=== PATIENT | female | born 1985 | race Caucasian/White ===

== ENCOUNTER 2016-04-24 15:51 | Emergency (ER) | payer OTHER, SELFPAY ==
[2016-04-24] MEDS ORDERED: Sodium Chloride 0.9% 2.5 ML Syringe FLUSH PRN (15:59)
[2016-04-24] MEDS ORDERED: Sodium Chloride 0.9% 10 ML Syringe FLUSH PRN (15:59)
[2016-04-24 16:59] LABS: CHLORIDE,CL 113 mmol/L (98-110); SODIUM,NA 141 mmol/L (136-146)
[2016-04-24] MEDS ORDERED: Iopamidol 755 MG/ML 50 ML Bottle IV STA (17:56)
--- NOTE | 2016-04-24 18:02 | EDM.PDOC ---
ED HPI GI/ABDOMINAL - General Chief Complaint: Abdominal Pain Stated Complaint: POSSIBLE INFECTED GLADBLADDER Time Seen by Provider: 04/24/16 16:00 Source of Information: Reports: Patient, Old records History Limitations: Reports: No limitations - History of Present Illness INITIAL COMMENTS - FREE TEXT/NARRATIVE: HISTORY AND PHYSICAL: History of present illness: [Patient comes to the emergency room at the request of Carla Avalos NP at [facility] where patient presented with diffuse abdominal pain for the past couple of days. She had an ultrasound of her abdomen which showed gall bladder thickening and inflammation. Surgeon was contacted by the clinic who recommended patient followup in the ER for blood work and abdominal CT scan. Patient shows up approximately 4 hours after leaving the clinic for evaluation in the ER. She's had diffuse abdominal pain which is worse in the right upper quadrant. She 's been feeling ill on and off for the past several weeks but really worsened over the past couple of days. She's not had fever or chills. She was prescribed Zofran this morning which greatly improved her feelings of nausea. She has taken small sips of water since she's been home the clinic today but has had no food. One episode of diarrhea today. Denies burning with urination, urinary frequency and hematuria.] Review of systems: As per history of present illness and below otherwise all systems reviewed and negative. Past medical history: As per history of present illness and as reviewed below otherwise noncontributory. Surgical history: As per history of present illness and as reviewed below otherwise noncontributory. Social history: No reported history of drug or alcohol abuse. Family history: As per history of present illness and as reviewed below otherwise noncontributory. Physical exam: HEENT: Atraumatic, normocephalic. Oral mucous membranes are pink and moist. throat clear, neck supple, no lymphadenopathy. Lungs: Clear to auscultation, no wheezing, crackles or rales. breath sounds equal bilaterally. Heart: S1S2, regular rate and rhythm., negative for clicks, rubs, or JVD. Abdomen: Bowel sounds are normoactive throughout. Abdomen is soft and nondistended. Diffuse abdominal tenderness with palpation significantly worse to right upper quadrant. Positive Lui's sign. Negative for costovertebral tenderness. No guarding masses or rebound. Pelvis: Stable nontender. Genitourinary: Deferred. Rectal: Deferred. Extremities: Atraumatic, negative for cords or calf pain. Cyanosis or edema to feet or lower legs. Neurovascular unremarkable. Neuro: Awake, alert, oriented. Motor and sensory unremarkable throughout. Exam nonfocal. Diagnostics: [CBC, CMP, urinalysis, amylase, lipase, urine , CT abdomen and pelvis] Impression: [] Right upper Quadrant abdominal pain UTI] Plan: [Labs and CT report are reviewed with patient and Dr. Sophia Ferro. Abdominal CT shows a significantly distended gallbladder and a dilated cystic duct measuring up to 1.[address] Cat recommends HIDA scan as an outpatient tomorrow followup with her in clinic next week. Will start patient on Cipro 500 mg twice a day for the next 7 days for UTI. Patient is in agreement with today' s plan. All questions are answered and concerns are addressed.] Definitive disposition and diagnosis as appropriate pending reevaluation and review of above. - Related Data Allergies/ADRs: Allergies Allergy/AdvReac Type Severity Reaction Status Date / Time aspirin Allergy Muscle Verified 04/24/16 15:58 Weakness Home Meds: Home Meds . 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 Musculoskeletal History: Reports: None Neurological History: Reports: None Psychiatric History: Reports: None Endocrine/Metabolic History: Reports: None Hematologic History: Reports: None Immunologic History: Reports: None Oncologic (Cancer) History: Reports: None Dermatologic History: Reports: None - Infectious Disease History Infectious Disease History: Reports: Chicken pox, Hepatitis A - Past Surgical History Head Surgeries/Procedures: Reports: None Social & Family History - Family History Family Medical History: Noncontributory - Tobacco Use Smoking Status *Q: Current Some Day Smoker Years of Tobacco use: 8 Packs/Tins Daily: 0.2 Second Hand Smoke Exposure: Yes - Caffeine Use Caffeine Use: Reports: None - Alcohol Use Days Per Week of Alcohol Use: 2 Number of Drinks Per Day: 4 Total Drinks Per Week: 8 - Recreational Drug Use Recreational Drug Use: No ED ROS GENERAL - Review of Systems Review Of Systems: ROS reveals no pertinent complaints other than HPI. ED EXAM, GI/ABD - Physical Exam Exam: See Below Course - Vital Signs Last Recorded V/S: Last Vital Signs Temp 98.7 F 04/24/16 19:16 Pulse 73 04/24/16 19:16 Resp 16 04/24/16 19:16 BP 117/79 04/24/16 19:16 Pulse Ox 99 04/24/16 19:16 - Orders/Labs/Meds Orders: Active Orders 24 hr Category Date Time Status Abdomen Pelvis w Cont [CT] Stat Exams 04/24/16 16:00 Taken Saline Lock Insert [OM.PC] Stat Oth 04/24/16 15:59 Ordered Labs: Laboratory Tests 04/24/16 04/24/16 04/24/16 Range/Units 16:10 16:10 16:29 WBC 5.14 (4.0-11.0) K/uL RBC 4.61 (4.30-5.90) M/uL Hgb 13.1 (12.0-16.0) g/dL Hct 39.7 (36.0-46.0) % MCV 86.1 (80.0-98.0) fL MCH 28.4 (27.0-32.0) pg MCHC 33.0 (31.0-37.0) g/dL RDW Std Deviation 40.1 (28.0-62.0) fl RDW Coeff of Cecilia 13 (11.0-15.0) % Plt Count 167 (150-400) K/uL MPV 11.40 (7.40-12.00) fL Neut % (Auto) 63.3 (48.0-80.0) % Lymph % (Auto) 28.0 (16.0-40.0) % [place] % (Auto) 6.8 (0.0-15.0) % Eos % (Auto) 1.9 (0.0-7.0) % Baso % (Auto) 0.0 (0.0-1.5) % Neut # 3.3 (1.4-5.7) K/uL Lymph # 1.4 (0.6-2.4) K/uL Cascade # 0.4 (0.0-0.8) K/uL Eos # 0.1 (0.0-0.7) K/uL Baso # 0.0 (0.0-0.1) K/uL Nucleated RBC % 0.0 /100WBC Nucleated RBCs # 0 K/uL Sodium (136-146) mmol/L Potassium (3.5-5.1) mmol/L Chloride (98-110) mmol/L Carbon Dioxide (21-31) mmol/L BUN (6.0-23.0) mg/dL Creatinine (0.6-1.5) mg/dL Est Cr Clr Drug Dosing mL/min Estimated GFR (MDRD) ml/min Glucose (60-110) mg/dL Calcium (8.8-10.8) mg/dL Total Bilirubin (0.1-1.5) mg/dL AST (5-40) IU/L ALT (8-54) IU/L Alkaline Phosphatase (40-150) Total Protein (6.0-8.0) g/dL Albumin (3.5-5.0) g/dL Globulin (2.0-3.5) g/dL Albumin/Globulin Ratio (1.3-2.8) Amylase (10-90) U/L Lipase (7-80) U/L Urine Color YELLOW Urine Appearance CLEAR Urine pH 7.0 (5.0-8.0) Ur Specific [place] 1.020 (1.001-1.035) Urine Protein NEGATIVE (NEGATIVE) mg/dL Urine Glucose (UA) NEGATIVE (NEGATIVE) mg/dL Urine Ketones NEGATIVE (NEGATIVE) mg/dL Urine Occult Blood MODERATE (NEGATIVE) Urine Nitrite NEGATIVE (NEGATIVE) Urine Bilirubin NEGATIVE (NEGATIVE) Urine Urobilinogen 2.0 H (<2.0) EU/dL Ur Leukocyte Esterase NEGATIVE (NEGATIVE) Urine RBC 0-2 (0-2/HPF) Urine WBC 1-2 (0-5/HPF) Ur Epithelial Cells MODERATE (NONE-FEW) Urine Bacteria 2+ H (NEGATIVE) Urine HCG, Qual NEGATIVE (NEGATIVE) 04/24/16 Range/Units 16:29 WBC (4.0-11.0) K/uL RBC (4.30-5.90) M/uL Hgb (12.0-16.0) g/dL Hct (36.0-46.0) % MCV (80.0-98.0) fL MCH (27.0-32.0) pg MCHC (31.0-37.0) g/dL RDW Std Deviation (28.0-62.0) fl RDW Coeff of Cecilia (11.0-15.0) % Plt Count (150-400) K/uL MPV (7.40-12.00) fL Neut % (Auto) (48.0-80.0) % Lymph % (Auto) (16.0-40.0) % Cascade % (Auto) (0.0-15.0) % Eos % (Auto) (0.0-7.0) % Baso % (Auto) (0.0-1.5) % Neut # (1.4-5.7) K/uL Lymph # (0.6-2.4) K/uL Cascade # (0.0-0.8) K/uL Eos # (0.0-0.7) K/uL Baso # (0.0-0.1) K/uL Nucleated RBC % /100WBC Nucleated RBCs # K/uL Sodium 141 (136-146) mmol/L Potassium 3.8 (3.5-5.1) mmol/L Chloride 113 H (98-110) mmol/L Carbon Dioxide 20 L (21-31) mmol/L BUN 15 (6.0-23.0) mg/dL Creatinine 0.7 (0.6-1.5) mg/dL Est Cr Clr Drug Dosing 109.01 mL/min Estimated GFR (MDRD) > 60.0 ml/min Glucose 96 (60-110) mg/dL Calcium 8.8 (8.8-10.8) mg/dL Total Bilirubin 0.4 (0.1-1.5) mg/dL AST 13 (5-40) IU/L ALT 16 (8-54) IU/L Alkaline Phosphatase 79 (40-150) Total Protein 7.0 (6.0-8.0) g/dL Albumin 4.0 (3.5-5.0) g/dL Globulin 3.0 (2.0-3.5) g/dL Albumin/Globulin Ratio 1.3 (1.3-2.8) Amylase 38 (10-90) U/L Lipase 17 (7-80) U/L Urine Color Urine Appearance Urine pH (5.0-8.0) Ur Specific [place] (1.001-1.035) Urine Protein (NEGATIVE) mg/dL Urine Glucose (UA) (NEGATIVE) mg/dL Urine Ketones (NEGATIVE) mg/dL Urine Occult Blood (NEGATIVE) Urine Nitrite (NEGATIVE) Urine Bilirubin (NEGATIVE) Urine Urobilinogen (<2.0) EU/dL Ur Leukocyte Esterase (NEGATIVE) Urine RBC (0-2/HPF) Urine WBC (0-5/HPF) Ur Epithelial Cells (NONE-FEW) Urine Bacteria (NEGATIVE) Urine HCG, Qual (NEGATIVE) Meds: Medications Discontinued Medications Generic Name Dose Route Start Last Admin Trade Name Freq PRN Reason Stop Dose Admin Iopamidol 100 ml 04/24/16 17:56 04/24/16 17:57 Isovue-370 (76%) IV 04/24/16 17:57 100 ml ONETIME STA Administration Sodium Chloride 10 ml 04/24/16 15:59 Saline Flush FLUSH ASDIRECTED PRN Keep Vein Open Sodium Chloride 2.5 ml 04/24/16 15:59 Saline Flush FLUSH ASDIRECTED PRN Keep Vein Open Departure - Departure Time of Disposition: 19:00 Disposition: Home, Self-Care 01 Condition: good Clinical Impression: Abdominal pain Qualifiers: Abdominal location: right upper quadrant Qualified Code(s): R10.11 - Right upper quadrant pain UTI (urinary tract infection) Qualifiers: Urinary tract infection type: site unspecified Hematuria presence: without hematuria Qualified Code(s): N39.0 - Urinary tract infection, site not specified Instructions: Urinary Tract Infection, Adult, [id number], Abdominal Pain, Adult, [id number] Referrals: PCP,None [Primary Care Provider] - Forms: ED Department Discharge Additional Instructions: The following information is given to patients seen in the emergency department who are being discharged to home. This information is to outline your options for follow-up care. We provide all patients seen in our emergency department with a follow-up referral. The need for follow-up, as well as the timing and circumstances, are variable depending upon the specifics of your emergency department visit. If you don't have a primary care physician on staff, we will provide you with a referral. We always advise you to contact your personal physician following an emergency department visit to inform them of the circumstance of the visit and for follow-up with them and/or the need for any referrals to a consulting specialist. The emergency department will also refer you to a specialist when appropriate. This referral assures that you have the opportunity for follow-up care with a specialist. All of these measure are taken in an effort to provide you with optimal care, which includes your follow-up. Under all circumstances we always encourage you to contact your private physician who remains a resource for coordinating your care. When calling for follow-up care, please make the office aware that this follow-up is from your recent emergency room visit. If for any reason you are refused follow-up, please contact the [facility] emergency department at and asked to speak to the emergency department charge nurse. [facility] Specialty Care- General Surgery Professional Building [address] [place] [address], [address] [place] [address] Call the above listed phone number tomorrow to schedule an appointment to followup with Dr. Sophia Ferro about your gallbladder next week. You have been given an outpatient prescription for a HIDA scan. Take this to radiology registration desk tomorrow. Take Cipro twice daily as prescribed. Return to ER as needed and as discussed. - My Orders Last 24 Hours: My Active Orders 04/24/16 15:59 Saline Lock Insert [OM.PC] Stat 04/24/16 16:00 Abdomen Pelvis w Cont [CT] Stat - Assessment/Plan Last 24 Hours: My Active Orders 04/24/16 15:59 Saline Lock Insert [OM.PC] Stat 04/24/16 16:00 Abdomen Pelvis w Cont [CT] Stat
[2016-04-24 19:19] VITALS: BP 117/79
--- NOTE | 2016-04-25 14:02 | CT ---
EXAM DATE: 04/24/16 PATIENT'S AGE: 30 Patient: JONN GODDARD Facility: [place], [place] Site . Site : 1985 Study: CT Abdomen/Pelvis [id number]/2/2017 6:00:02 PM Ordering Physician: Doctor Resendiz Final Report: INDICATION: Upper abdominal pain. Right flank pain TECHNIQUE: CT abdomen and pelvis acquired with IV contrast. COMPARISON: None available FINDINGS: Lower chest: Unremarkable. Liver: An irregular low-attenuation area in the anterior segment of the right hepatic lobe, with very subtle slightly increased adjacent density, measuring up to 4.8 x 3.5 centimeters on the coronal reformats, not well evaluated. Spleen: Unremarkable. Pancreas: Unremarkable. Gallbladder and bile ducts: A significantly distended gallbladder. Dilated cystic duct measuring up to 1.5 centimeters proximally. Adrenal glands: Unremarkable. Kidneys: Unremarkable. GI tract: No high-grade mechanical bowel obstruction. Fluid-filled small bowel segments are nonspecific. No evidence of appendicitis. No significant pericolonic changes. Vascular structures: Unremarkable. Lymph nodes: Unremarkable. Miscellaneous: Unremarkable. No free air or significant free fluid. Pelvic Organs: Unremarkable. Bones: Unremarkable for age. IMPRESSION: No evidence of appendicitis, diverticulitis or high-grade mechanical bowel obstruction. Fluid-filled small bowel segments are nonspecific. Correlate for mild enteritis. Significantly distended gallbladder and dilated cystic duct. Recommend further sonographic evaluation. An ill-defined irregular hepatic lesion, not well evaluated. This could represent an FNH, although other etiologies are not excluded. Recommend followup evaluation with contrast MRI. Dictated by Talib Cox MD @ 04/24/2016 6:23:07 PM Dictated by: Talib Cox MD @ 04/24/2016 18:23:19 (Electronic Signature) Report Signed by Proxy and Original Signed Document filed in the Medical Record. [facility] HOSPITALRenetta
== END 2016-04-24 19:16 | disposition home or self-care (01) ==
LOC: MW.ED 15:51
DX: N39.0 Urinary tract infection, site not specified (principal); F17.210 Nicotine dependence, cigarettes, uncomplicated; Z88.6 Allergy status to analgesic agent
CPT/HCPCS: 36415; 74177; 80053; 81001; 81025; 82150; 83690; 85025; 99284; Q9967; 99283

== ENCOUNTER → 2016-04-29 | Outpatient (CLI) | payer OTHER, SELFPAY ==
--- NOTE | 2016-04-29 10:51 | NM ---
EXAMINATION: Nuclear medicine hepatobiliary study (HIDA) HISTORY: Right upper quadrant pain. PROCEDURE: Following intravenous administration of 3.9 mCi of technetium 99m Choletec, dynamic images were ob tained up to one-hour post injection. FINDINGS: The initial dynamic images demonstrates clearance of the tracer from the blood pool with the prompt tracer uptake by the liver. By 60 minutes no activity is noted within the gallbladder. There is acti vity noted within the small bowel by 15 minutes. IMPRESSION: 1. No scintigraphic evidence of a patent cystic duct. Correlate clinically for acute cholecystitis.
== END ==
LOC: MW.NM 07:51
PROVIDERS: ATTEND Surgery
DX: R10.11 Right upper quadrant pain (principal)
CPT/HCPCS: 78226; A9537

== ENCOUNTER 2016-05-05 06:30 | Day surgery (SDC) | payer OTHER, SELFPAY ==
--- NOTE | 2016-05-02 10:56 | PCM.PREANE ---
Preanesthetic Assessment - ANESTHESIA/TRANSFUSION/FAMILY HX Anesthesia/Transfusion History: No Prior Anesthesia Family History of Anesthesia Reaction: No - PHYSICAL ASSESSMENT Height: 1.68 m Weight: 85.729 kg ASA Class: 1 - ALLERGIES Allergies/Adverse Reactions: Allergies Allergy/AdvReac Type Severity Reaction Status Date / Time aspirin Allergy Tachycardia Verified 05/01/16 08:07 - BLOOD Blood Available: No - ANESTHESIA PLAN Preop Beta Samir: No Anesthesia Type Planned: general anesthesia PreAnesthesia Questionnaire - Past Health History Medical/Surgical History: Denies Medical/Surgical History HEENT History: Reports: None Cardiovascular History: Reports: None Respiratory History: Reports: None Gastrointestinal History: Reports: Chronic diarrhea, GERD Genitourinary History: Reports: None 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 Musculoskeletal History: Reports: None Neurological History: Reports: None Psychiatric History: Reports: None Endocrine/Metabolic History: Reports: None Hematologic History: Reports: None Immunologic History: Reports: None Oncologic (Cancer) History: Reports: None Dermatologic History: Reports: None - Infectious Disease History Infectious Disease History: Reports: Chicken pox, Hepatitis A - Past Surgical History Head Surgeries/Procedures: Reports: None - SUBSTANCE USE Smoking Status *Q: Current Every Day Smoker Tobacco Use Within Last Twelve Months: Cigarettes Second Hand Smoke Exposure: Yes Days Per Week of Alcohol Use: 2 Number of Drinks Per Day: 4 Total Drinks Per Week: 8 Recreational Drug Use History: No - HOME MEDS Home Medications: Home Meds Ondansetron [Zofran ODT] 4 mg SL ASDIRECTED PRN 05/01/16 [History]
[~2016-05-05 06:30] MED LIST: Lactated Ringers 1,000 ML IV SCH
[2016-05-05] MEDS ORDERED: Scopolamine 1.5 MG Transdermal Patch TRDERM PRN (06:54)
--- NOTE | 2016-05-05 06:56 | PCM.PREANE ---
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 Respiratory: Reports: no symptoms Cardiovascular: Reports: no symptoms Other: Reports: none - PHYSICAL ASSESSMENT O2 Sat by Pulse Oximetry: 99 RR: 16 Vital Signs: Last Vital Signs Temp 37.1 C 05/05/16 06:49 Pulse 74 05/05/16 06:49 Resp 16 05/05/16 06:49 BP 120/58 L 05/05/16 06:49 Pulse Ox 99 05/05/16 06:49 Height: 1.68 m Weight: 85.729 kg ASA Class: 2 Mental Status: alert & oriented x3 Airway Class: Mallampati = 2 Dentition: Reports: normal dentition Thyro-Mental Finger Breadths: 3 Mouth Opening Finger Breadths: 3 ROM/Head Extension: full Respiratory Status: lungs clear to auscultation bilaterally Cardiovascular Status: regular rate & rhythm, normal S1, S2, no murmur, blood pressure WNL - ALLERGIES Allergies/Adverse Reactions: Allergies Allergy/AdvReac Type Severity Reaction Status Date / Time aspirin Allergy Tachycardia Verified 05/01/16 08:07 - BLOOD Blood Available: No - ANESTHESIA PLAN Preop Beta Samir: No Anesthesia Type Planned: general anesthesia - ACKNOWLEDGEMENTS Pt an appropriate candidate for the planned anesthesia: Yes Alternatives and risks of anesthesia discussed w pt/guardian: Yes Pt/Guardian understands and agree with anesthesia plan: Yes PreAnesthesia Questionnaire - Past Health History Medical/Surgical History: Denies Medical/Surgical History HEENT History: Reports: None Cardiovascular History: Reports: None Respiratory History: Reports: None Gastrointestinal History: Reports: Chronic diarrhea, GERD Genitourinary History: Reports: None 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 Musculoskeletal History: Reports: None Neurological History: Reports: None Psychiatric History: Reports: None Endocrine/Metabolic History: Reports: Obesity/BMI 30+ Hematologic History: Reports: None Immunologic History: Reports: None Oncologic (Cancer) History: Reports: None Dermatologic History: Reports: None - Infectious Disease History Infectious Disease History: Reports: Chicken pox, Hepatitis A - Past Surgical History Head Surgeries/Procedures: Reports: None - SUBSTANCE USE Smoking Status *Q: Light Tobacco Smoker Tobacco Use Within Last Twelve Months: Cigarettes Second Hand Smoke Exposure: Yes Days Per Week of Alcohol Use: 2 Number of Drinks Per Day: 4 Total Drinks Per Week: 8 Recreational Drug Use History: No - HOME MEDS Home Medications: Home Meds Ondansetron [Zofran ODT] 4 mg SL ASDIRECTED PRN 05/01/16 [History] - CURRENT (IN HOUSE) MEDS Current Meds: Current Medications Lactated Ringer's (Ringers, Lactated) 1,000 mls @ 125 mls/hr IV ASDIRECTED ON LICENSE OF [facility] Last Admin: 05/05/16 06:52 Dose: 125 mls/hr
[2016-05-05] MEDS ORDERED: Rocuronium 10 MG/ML 10 ML Syringe ONE (07:15)
[2016-05-05] MEDS ORDERED: Ondansetron 4 MG/2 ML SDV ONE (07:15)
[2016-05-05] MEDS ORDERED: Lidocaine 2% 5 ML SDV ONE (07:15)
[2016-05-05] MEDS ORDERED: Propofol 200 MG/20 ML SDV ONE (07:16)
[2016-05-05] MEDS ORDERED: Midazolam 1 MG/ML 2 ML SDV ONE (07:16)
[2016-05-05] MEDS ORDERED: fentaNYL 250 MCG/5 ML SDV ONE (07:16)
[2016-05-05] MEDS ORDERED: Bupivacaine 0.5% 30 ML SDV ONE (07:18)
[2016-05-05] MEDS ORDERED: ceFAZolin 2 GM in Premix Bag 1 BAG IV ONE (07:34)
[2016-05-05] MEDS ORDERED: Sodium Chloride 0.9% 2.5 ML Syringe FLUSH PRN (07:34)
[2016-05-05] MEDS ORDERED: Sodium Chloride 0.9% 10 ML Syringe FLUSH PRN (07:34)
[2016-05-05] MEDS ORDERED: Lactated Ringers 1,000 ML IV SCH (07:45)
[2016-05-05 07:53] LABS: CHLORIDE,CL 109 mmol/L (98-110); SODIUM,NA 142 mmol/L (136-146)
[2016-05-05] MEDS ORDERED: Dexamethasone 4 MG/ML 5 ML MDV ONE (08:07)
[2016-05-05] MEDS ORDERED: HYDROmorphone 2 MG/ML Syringe ONE (08:18)
[2016-05-05] MEDS ORDERED: Neostigmine Methylsulfate 1 MG/ML 5 ML Syringe ONE (08:58)
[2016-05-05] MEDS ORDERED: fentaNYL 100 MCG/2 ML SDV IVPUSH PRN (09:00)
[2016-05-05] MEDS ORDERED: Promethazine 12.5 MG Supp RECTAL PRN (09:00)
[2016-05-05] MEDS ORDERED: fentaNYL 100 MCG/2 ML SDV ONE (09:29)
[2016-05-05] MEDS ORDERED: Acetaminophen/oxyCODONE 325-5 MG Tab PO PRN (10:23)
--- NOTE | 2016-05-05 10:27 | PCM.OPNOTE ---
- General Post-Op/Procedure Note Date of Surgery/Procedure: 05/05/16 Operative Procedure(s): Laparoscopic cholecystectomy Findings: Enlarged gallbladder with large obstructing stone in the infundibulum and well as hydrops Pre Op Diagnosis: Cholelithiasis Post-Op Diagnosis: same Anesthesia Technique: General ET tube Primary Surgeon: Sophia Ferro Pathology: gallbladder EBL in mLs: 5 Condition: Good
--- NOTE | 2016-05-05 11:05 | PCM.POSTAN ---
POST ANESTHESIA ASSESSMENT - MENTAL STATUS Mental Status: alert, oriented - RESPIRATORY Respiratory Status: respiratory rate WNL, airway patent, O2 saturation stable - CARDIOVASCULAR CV Status: pulse rate WNL, blood pressure stable - GASTROINTESTINAL GI Status: no symptoms - POST OP HYDRATION Hydration Status: adequate & stable
--- NOTE | 2016-05-05 12:02 | PCM48HPAN ---
Post Anesthesia Note - EVALUATION WITHIN 48HRS OF ANESTHETIC Vital Signs in Normal Range: Yes Patient Participated in Evaluation: Yes Respiratory Function Stable: Yes Airway Patent: Yes Cardiovascular Function Stable: Yes Hydration Status Stable: Yes Pain Control Satisfactory: Yes Nausea and Vomiting Control Satisfactory: Yes Mental Status Recovered: Yes
--- NOTE | 2016-05-05 15:21 | OR ---
SURGEON: CHANDANA RAMIREZ MD DATE OF PROCEDURE: 05/05/2016 PREOPERATIVE DIAGNOSIS: Symptomatic cholelithiasis. POSTOPERATIVE DIAGNOSES: Chronic cholecystitis, cholelithiasis, hydrops of the gallbladder. OPERATION PERFORMED: Laparoscopic cholecystectomy. SEDATION: General. FINDINGS: Enlarged gallbladder with large stone in the infundibulum as well as hydrops. COMPLICATIONS: None. ESTIMATED BLOOD LOSS: 5 mL. INDICATIONS: The patient is a 30-year-old female with a 1-month history of right upper quadrant pain as well as postprandial nausea and diarrhea. A full workup was completed that revealed a large stone impacted within the cystic duct. Given this finding, it was pertinent that we remove the gallbladder before the patient developed complications including acute infection, gangrene, or necrosis. The patient and I discussed the procedure in the office. I explained both the laparoscopic and open approaches to removing the gallbladder. I explained that should I be unable to perform the procedure laparoscopically, I would be converting to open. I explained to her that given the location of the stone that she had a higher chance of converting to open. We discussed the other risks including bleeding, infection, or damage to surrounding structures. The patient verbalized understanding and wished to proceed. DESCRIPTION OF PROCEDURE: The patient was brought to the operating room and placed on the operating room table in supine position. A time-out was completed verifying the patient's name, age, date of , allergies, and procedure to be performed. General endotracheal anesthesia was induced. The patient's left arm was tucked at her side and the abdomen was prepped and draped in usual standard fashion. 0.5% lidocaine was used to anesthetize the infraumbilical fold. I then took an 11 blade and made an incision along the infraumbilical fold. Cautery was used to dissect down to the subcutaneous fat and S retractors were used for further dissection down to the level of the fascia. The fascia was elevated with 2 Nancy's and incised. The peritoneum was then elevated in a similar fashion using hemostats and incised. A large amount of fat was encountered upon entering the abdomen. Using my finger, I explored the area and encountered bowel. Because of this, I was confident that I had entered the abdomen and placed my 12 mm blunt-tipped trocar through the incision. The abdomen was then insufflated to a pressure of 12-15 mmHg. A 5 mm 30-degree scope was inserted in the abdomen and used to inspect the area underneath my incision. The bowel and fat below the incision all appeared intact with no evidence of damage. I then placed 3 more ports within the abdomen. The first 5 mm port was in the epigastric area. The next two 5 mm ports were then placed along the right subcostal margin approximately 2 fingerbreadths down. One was in the midclavicular line, the other was along the lateral edge. Next, the gallbladder was retracted cephalad to allow visualization of the gallbladder itself. I followed the gallbladder body down to the infundibulum. A very large round stone was noted to be in the infundibulum at the area consistent with the cystic duct. I further inspected the area and noted the common bile duct medial to the area I was going to work. The peritoneum was gently dissected free from the infundibulum of the gallbladder using hook cautery and gentle blunt dissection. This allowed me to better visualize the anatomy of the proximal gallbladder. Once I had dissected the base of the gallbladder free from the liver bed, I was then able to adequately identify the cystic duct and cystic artery. Once I had achieved a critical view, the cystic artery and cystic ducts were doubly clipped proximally and singly clipped distally and then transected. Next, the gallbladder was removed from the liver bed using electrocautery. This was extremely difficult given how enlarged the gallbladder was. At the beginning of the case, I had previously aspirated the gallbladder contents and obtained a large amount of clear white bile. This allowed me to grasp the gallbladder and retract it cephalad. Because of this maneuver, I was able to manipulate the gallbladder to dissect it off the gallbladder fossa. Once the gallbladder was removed from the liver bed, it was placed into an EndoCatch bag and removed through the infraumbilical port. The gallbladder was then inspected on the back table and appeared to be intact with one small hole at the dome of the gallbladder. After the gallbladder was successfully removed, an 11 mm trocar was placed into the abdomen. The liver edge was visualized. There was no evidence of acute bleeding and the area appeared hemostatic. The abdomen was irrigated with 2 L of normal saline until it ran clear. Next, the ports were removed under direct visualization and no bleeding was noted. The 11 mm port was removed from the infraumbilical incision. The fascia was then closed with [id number] interrupted 0 Vicryl sutures. The subcutaneous layer was closed with interrupted 3-0 Vicryl. The skin of the infraumbilical incision was closed with a running 4-0 Monocryl suture. The remainder of the port sites were then closed with interrupted 4-0 Monocryl sutures. The wounds were dressed with Steri-Strips and sterile dressings. The patient tolerated the procedure well. Sponge and instrument counts were correct at the end of the case. The patient was extubated in the operating room without event and transferred to recovery room in stable condition. BRANDYN HERNANDEZ /[id number] CHAYA
[2016-05-05 15:40] VITALS: BP 130/72
== END 2016-05-05 15:40 | disposition home or self-care (01) ==
LOC: MW.SDS 06:30
PROVIDERS: ATTEND Surgery
PROC: 0FT44ZZ Resection of Gallbladder, Percutaneous Endoscopic Approach (ICD-10-PCS; principal; 2016-05-05)
DX: K80.10 Calculus of gallbladder with chronic cholecystitis without obstruction (principal); F17.210 Nicotine dependence, cigarettes, uncomplicated; E66.9 Obesity, unspecified; Z88.8 Allergy status to other drugs, medicaments and biological substances; Z68.30 Body mass index [BMI] 30.0-30.9, adult
CPT/HCPCS: 36415; 47562; 80053; 81025; 88304; A9270; J0690; J1100; J1170; J2250; J2405; J2710; J3010; J7120; 00790; J2704

== ENCOUNTER 2017-01-24 11:36 | Emergency (ER) | payer SELFPAY ==
--- NOTE | 2017-01-24 11:58 | EDM.PDOC ---
ED HPI GENERAL MEDICAL PROBLEM - General Chief Complaint: Lower Extremity Injury/Pain Stated Complaint: LEFT KNEE PAIN Time Seen by Provider: 01/24/17 11:47 Source of Information: Reports: Patient History Limitations: Reports: No Limitations - History of Present Illness INITIAL COMMENTS - FREE TEXT/NARRATIVE: History of present illness: []Patient slipped yesterday at 6 PM with her right knee going underneath her. She has pain all over her knee but it feels unstable when she walks. She denies any other injuries. She tried to go to the orthopedic clinic but was told she has to be seen to the ER first. Review of systems: As per history of present illness and below otherwise all systems reviewed and negative. Past medical history: As per history of present illness and as reviewed below otherwise noncontributory. Surgical history: As per history of present illness and as reviewed below otherwise noncontributory. Social history: No reported history of drug or alcohol abuse. Family history: As per history of present illness and as reviewed below otherwise noncontributory. Physical exam: General: Well developed, well nourished in NAD HEENT: Atraumatic, normocephalic, pupils reactive, negative for conjunctival pallor or scleral icterus, mucous membranes moist, throat clear, neck supple, nontender, trachea midline. Lungs: Clear to auscultation, breath sounds equal bilaterally, chest nontender. Heart: S1S2, regular, negative for clicks, rubs, or JVD. Abdomen: Soft, nondistended, nontender. Negative for masses or hepatosplenomegaly. Negative for costovertebral tenderness. Pelvis: Stable nontender. Genitourinary: Deferred. Rectal: Deferred. Extremities: Atraumatic, right knee tender to palpation no effusion stable on exam negative for cords or calf pain. Neurovascular unremarkable. Neuro: Awake, alert, oriented. Cranial nerves II through XII unremarkable. Cerebellum unremarkable. Motor and sensory unremarkable throughout. Exam nonfocal. Diagnostics: []X-ray negative for fracture Therapeutics: [] Impression: []Right knee sprain Plan: []Knee immobilizer for stability follow-up with orthopedics Motrin for pain continue to ice knee. Definitive disposition and diagnosis as appropriate pending reevaluation and review of above. Right Knee Pain Score (Numeric/FACES): 4 - Related Data Allergies Allergy/AdvReac Type Severity Reaction Status Date / Time aspirin Allergy Tachycardia Verified 01/24/17 11:51 Home Meds: Home Meds . 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 Musculoskeletal History: Reports: None Neurological History: Reports: None Psychiatric History: Reports: None Endocrine/Metabolic History: Reports: Obesity/BMI 30+ Hematologic History: Reports: None Immunologic History: Reports: None Oncologic (Cancer) History: Reports: None Dermatologic History: Reports: None - Infectious Disease History Infectious Disease History: Reports: Chicken Pox, Hepatitis C, Measles - Past Surgical History Head Surgeries/Procedures: Reports: None GI Surgical History: Reports: Cholecystectomy Social & Family History - Family History Family Medical History: Noncontributory - Tobacco Use Smoking Status *Q: Former Smoker Years of Tobacco use: 10 Packs/Tins Daily: 0.2 Used Tobacco, but Quit: Yes Month Tobacco Last Used: October Second Hand Smoke Exposure: Yes - Caffeine Use Caffeine Use: Reports: None - Alcohol Use Days Per Week of Alcohol Use: 2 Number of Drinks Per Day: 4 Total Drinks Per Week: 8 - Recreational Drug Use Recreational Drug Use: No Drug Use in Last 12 Months: No Review of Systems - Review of Systems Review Of Systems: See Below (See history of present illness) ED EXAM, GENERAL - Physical Exam Exam: See Below (See history of present illness) Course - Vital Signs Last Recorded V/S: Last Vital Signs Temp 97.5 F 01/24/17 11:48 Pulse 76 01/24/17 11:48 Resp 18 01/24/17 11:48 BP 138/63 01/24/17 11:48 Pulse Ox 97 01/24/17 11:48 - Orders/Labs/Meds Orders: Active Orders 24 hr Category Date Time Status Knee 3V Rt [CR] Stat Exams 01/24/17 12:00 Taken Departure - Departure Time of Disposition: 12:52 Disposition: Home, Self-Care 01 Condition: Good Clinical Impression: Right knee sprain Qualifiers: Encounter type: initial encounter Involved ligament of knee: unspecified ligament Qualified Code(s): S83.91XA - Sprain of unspecified site of right knee , initial encounter - Discharge Information Referrals: PCP,None [Primary Care Provider] - Forms: ED Department Discharge Additional Instructions: The following information is given to patients seen in the emergency department who are being discharged to home. This information is to outline your options for follow-up care. We provide all patients seen in our emergency department with a follow-up referral. The need for follow-up, as well as the timing and circumstances, are variable depending upon the specifics of your emergency department visit. If you don't have a primary care physician on staff, we will provide you with a referral. We always advise you to contact your personal physician following an emergency department visit to inform them of the circumstance of the visit and for follow-up with them and/or the need for any referrals to a consulting specialist. The emergency department will also refer you to a specialist when appropriate. This referral assures that you have the opportunity for follow-up care with a specialist. All of these measure are taken in an effort to provide you with optimal care, which includes your follow-up. Under all circumstances we always encourage you to contact your private physician who remains a resource for coordinating your care. When calling for follow-up care, please make the office aware that this follow-up is from your recent emergency room visit. If for any reason you are refused follow-up, please contact the [facility] Emergency Department at and asked to speak to the emergency department charge nurse. Motrin for pain immobilizer as needed when walking follow-up with orthopedics [facility] [address] [place] [id number] - My Orders Last 24 Hours: My Active Orders 01/24/17 12:00 Knee 3V Rt [CR] Stat - Assessment/Plan Last 24 Hours: My Active Orders 01/24/17 12:00 Knee 3V Rt [CR] Stat
[2017-01-24 14:38] VITALS: BP 134/74
--- NOTE | 2017-01-26 13:53 | CR ---
EXAM DATE: 01/24/17 PATIENT'S AGE: 31 Patient: JONN TANG Facility: [place], [place] Site . Site : [id number] Study: XRay Knee [id number]/2/2017 12:21:11 PM Ordering Physician: Giovanni Forde Final Report: INDICATION: fall TECHNIQUE: Three views of the right knee are submitted. COMPARISON: None. FINDINGS: Joint spaces of the right knee are preserved. No evidence for fracture, dislocation or knee effusion. IMPRESSION: Negative right knee. Dictated by Farhad Le MD @ 01/24/2017 12:54:16 PM Dictated by: Farhad Le MD @ 01/24/2017 12:54:22 (Electronic Signature) Report Signed by Proxy. [facility]ITAL[facility]
== END 2017-01-24 13:03 | disposition home or self-care (01) ==
LOC: MW.ED 11:36
DX: S83.91XA Sprain of unspecified site of right knee, initial encounter (principal); Z88.6 Allergy status to analgesic agent; Z87.891 Personal history of nicotine dependence; W01.0XXA Fall on same level from slipping, tripping and stumbling without subsequent striking against object, initial encounter
CPT/HCPCS: 73562-26-RT; 73562-RT; 99282; 99283

== ENCOUNTER 2019-05-30 12:29 | Observation (INO) | payer OTHER ==
[2019-05-30] MEDS ORDERED: Nalbuphine 10 MG/1 ML Vial IVPUSH ONE (13:43)
[2019-05-30] MEDS ORDERED: Lactated Ringers 1,000 ML IV SCH (13:45)
[2019-05-30] MEDS ORDERED: Sodium Chloride 0.9% 10 ML Syringe FLUSH PRN (13:45)
[2019-05-30] MEDS ORDERED: Sodium Chloride 0.9% 10 ML SDV IV PRN (13:45)
[2019-05-30] MEDS ORDERED: Sodium Chloride 0.9% 2.5 ML Syringe FLUSH PRN (13:45)
--- NOTE | 2019-05-30 15:01 | US ---
Renal ultrasound: Multiple real-time images of the kidneys were obtained. Maternal kidneys show no hydronephrosis or mass. Right kidney measures 13.1 cm and left kidney measures 13.6 cm. Bilateral ureteral jets are seen within the bladder. Impression: 1. No abnormality is seen on renal ultrasound study. Diagnostic code #1 This report was dictated in MDT
[2019-05-30] MEDS ORDERED: Terbutaline 1 MG/ML SDV SUBCUT ONE ×2 (15:16→22:54)
[2019-05-30] MEDS ORDERED: Terbutaline 1 MG/ML SDV ONE (15:19)
[2019-05-30] MEDS ORDERED: Calcium Gluconate 10% 1 GM/10 ML SDV IVPUSH PRN (16:57)
[2019-05-30] MEDS ORDERED: Magnesium Sulfate/Water 2 GM in Premix Bag 1 BAG IV ONE (17:01)
[2019-05-30] MEDS: Betamethasone Acetate/Betamethasone Sod Phosphate 30 MG/5 ML MDV IM SCH (17:36)
[2019-05-30] MEDS: Magnesium Sulfate/Water 20 GM/500 ML BAG IV SCH (17:56)
--- NOTE | 2019-05-30 18:48 | PCM.LDHP ---
L&D History of Present Illness - General Date of Service: 05/30/19 Admit Problem/Dx: Patient Status Order with Admit Dx/Problem 05/30/19 12:51 Patient Status [ADT] Routine Admission Diagnosis/Problem Admission Diagnosis/Problem - planned 05/30/19 18:43 33yo EDC 07/19/2019 32 6/7wks, come today due to abd pain and cramping. O+, RI, GBS unkwn. Source of Information: Patient History Limitations: Reports: No Limitations - History of Present Illness Timing/Duration: Reports: minutes: Location, : Reports: Abdomen Quality: Reports: Ache, Burning, Throbbing Severity: Moderate Pain Score: 8 Improves with: Reports: None Worsens with: Reports: None Associated Symptoms: Denies: vaginal bleeding, vaginal clots, vaginal tissue, vaginal discharge, vaginal fluid - Related Data Allergies/Adverse Reactions: Allergies Allergy/AdvReac Type Severity Reaction Status Date / Time aspirin Allergy Tachycardia Verified 05/30/19 12:49 Home Medications: Home Meds . 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 Musculoskeletal History: Reports: None Neurological History: Reports: None Psychiatric History: Reports: None Endocrine/Metabolic History: Reports: Obesity/BMI 30+ Hematologic History: Reports: None Immunologic History: Reports: None Oncologic (Cancer) History: Reports: None Dermatologic History: Reports: None - Infectious Disease History Infectious Disease History: Reports: Chicken Pox, Hepatitis C, Measles - Past Surgical History Head Surgeries/Procedures: Reports: None GI Surgical History: Reports: Cholecystectomy Social & Family History - Family History Family Medical History: Noncontributory - Caffeine Use Caffeine Use: Reports: None H&P Review of Systems - Review of Systems: Review Of Systems: See Below General: Reports: No Symptoms HEENT: Reports: No Symptoms Pulmonary: Reports: No Symptoms Cardiovascular: Reports: No Symptoms Gastrointestinal: Reports: No Symptoms Genitourinary: Reports: No Symptoms Musculoskeletal: Reports: No Symptoms Skin: Reports: No Symptoms Psychiatric: Reports: No Symptoms Neurological: Reports: No Symptoms Hematologic/Lymphatic: Reports: No Symptoms Immunologic: Reports: No Symptoms L&D Exam - Exam Exam: See Below - Vital Signs Weight: 207 kg - OB Specific Contraction Intensity: Moderate Movement: Active Heart Tones: Present Heart Tones per Min: 140 Heart Rate (FHR) Variability: Moderate (6-25 bmp) Presentation: Vertex - Jacobo Score Jacobo Score Cervix Position: Midposition Jacobo Score Consistency: Soft Jacobo Score Effacement: 51-70% Jacobo Score Dilation: 1-2 cm Jacobo Score 's Station: -2 Jacobo Score Total: 7 - Exam General: Alert, Oriented, Cooperative, Mild Distress HEENT: Hearing Intact Lungs: Clear to Auscultation, Normal Respiratory Effort. No: Decreased Breath Sounds Cardiovascular: Regular Rate, Regular Rhythm, Normal S1, Normal S2 GI/Abdominal Exam: Soft, Non-Tender, Pelvis Stable Rectal Exam: Deferred Genitourinary: Normal external exam, Normal bimanual exam, Cervical dilitation. No: Cervical fluid, Vaginal bleeding Back Exam: Normal Inspection, Full Range of Motion Extremities: Normal Inspection, Normal Range of Motion, Non-Tender, No Pedal Edema Skin: Warm, Dry, Intact Neurological: Cranial Nerves Intact, Strength Equal Bilateral, Normal Gait, Normal Speech, Normal Tone, Sensation Intact Psychiatric: Alert, Normal Affect, Normal Mood - Patient Data Lab Results Last 24 hrs: Laboratory Results - last 24 hr 05/30/19 05/30/19 Range/Units 12:40 17:29 WBC 10.71 (4.0-11.0) K/uL RBC 4.30 (4.30-5.90) M/uL Hgb 12.1 (12.0-16.0) g/dL Hct 37.4 (36.0-46.0) % MCV 87.0 (80.0-98.0) fL MCH 28.1 (27.0-32.0) pg MCHC 32.4 (31.0-37.0) g/dL RDW Std Deviation 43.0 (28.0-62.0) fl RDW Coeff of Cecilia 14 (11.0-15.0) % Plt Count 152 (150-400) K/uL MPV 12.10 H (7.40-12.00) fL Nucleated RBC % 0.0 /100WBC Nucleated RBCs # 0 K/uL Urine Color YELLOW Urine Appearance HAZY Urine pH 6.5 (5.0-8.0) Ur Specific [place] 1.010 (1.001-1.035) Urine Protein NEGATIVE (NEGATIVE) mg/dL Urine Glucose (UA) NEGATIVE (NEGATIVE) mg/dL Urine Ketones 40 H (NEGATIVE) mg/dL Urine Occult Blood TRACE-INTACT H (NEGATIVE) Urine Nitrite NEGATIVE (NEGATIVE) Urine Bilirubin NEGATIVE (NEGATIVE) Urine Urobilinogen 0.2 (<2.0) EU/dL Ur Leukocyte Esterase NEGATIVE (NEGATIVE) Result Diagrams: 05/30/19 17:29 - Problem List (1) Supervision of normal IUP (intrauterine ) in primigravida SNOMED Code(s): 94136937, 313157117, 094658123, 543556676 ICD Code: Z34.00 - ENCNTR FOR SUPRVSN OF NORMAL FIRST , UNSP TRIMESTER Status: Acute Priority: High Current Visit: Yes Qualifiers: Trimester: third trimester Qualified Code(s): Z34.03 - Encounter for supervision of normal first , third trimester (2) contractions SNOMED Code(s): 612147626 ICD Code: O47.9 - FALSE LABOR, UNSPECIFIED Status: Acute Priority: High Current Visit: Yes Problem List Initiated/Reviewed/Updated: Yes Orders Last 24hrs: Active Orders 24 hr Category Date Time Status Patient Status [ADT] Routine ADT 05/30/19 12:51 Active Communication Order [RC] Per Unit Routine Care 05/30/19 16:57 Active Communication Order [RC] Per Unit Routine Care 05/30/19 16:57 Active Heart Tones [RC] ASDIRECTED Care 05/30/19 16:57 Active Non Stress Test [RC] PER UNIT ROUTINE Care 05/30/19 12:51 Active Height and Weight [RC] DAILY Care 05/30/19 16:57 Active Intake and Output [RC] QSHIFT Care 05/30/19 16:57 Active Notify Provider [RC] PRN Care 05/30/19 16:57 Active Notify Provider [RC] PRN Care 05/30/19 16:57 Active Up ad Mayela [RC] ASDIRECTED Care 05/30/19 12:51 Active Vaginal Exam [RC] Click to Edit Care 05/30/19 12:51 Active Vital Signs [RC] PER UNIT ROUTINE Care 05/30/19 12:51 Active Vital Signs [RC] PER UNIT ROUTINE Care 05/30/19 16:57 Active Betamet Acet/Betamet Na Phos [Celestone Soluspan 6 MG/ Med 05/30/19 17:00 Active ML] 12 mg IM Q24H Calcium Gluconate Med 05/30/19 16:57 Active 1 gm IVPUSH ASDIRECTED PRN Lactated Ringers [Ringers, Lactated] 1,000 ml Med 05/30/19 13:45 Active IV ASDIRECTED Magnesium Sulfate/Water [Magnesium Sulfate in Water Med 05/30/19 17:00 Active Premix] 20 gm in 500 ml IV ASDIRECTED Sodium Chloride 0.9% [Normal Saline] Med 05/30/19 13:45 Active 10 ml IV ASDIRECTED PRN Sodium Chloride 0.9% [Saline Flush] Med 05/30/19 13:45 Active 10 ml FLUSH ASDIRECTED PRN Sodium Chloride 0.9% [Saline Flush] Med 05/30/19 13:45 Active 2.5 ml FLUSH ASDIRECTED PRN Auscultate Breath Sounds [OM.PC] Per Unit Routine Oth 05/30/19 16:57 Ordered Deep Tendon Reflexes [WOMSER] [address] 05/30/19 17:00 Ordered Deep Tendon Reflexes [WOMSER] [address] 05/30/19 18:00 Ordered Deep Tendon Reflexes [WOMSER] [address] 05/30/19 19:00 Ordered Deep Tendon Reflexes [WOMSER] [address] 05/30/19 20:00 Ordered Deep Tendon Reflexes [WOMSER] [address] 05/30/19 21:00 Ordered Deep Tendon Reflexes [WOMSER] [address] 05/30/19 22:00 Ordered Deep Tendon Reflexes [WOMSER] [address] 05/30/19 23:00 Ordered Deep Tendon Reflexes [WOMSER] [address] 05/31/19 00:00 Ordered Deep Tendon Reflexes [WOMSER] [address] 05/31/19 01:00 Ordered Deep Tendon Reflexes [WOMSER] [address] 05/31/19 02:00 Ordered Deep Tendon Reflexes [WOMSER] [address] 05/31/19 03:00 Ordered Deep Tendon Reflexes [WOMSER] Q1H Oth 05/31/19 04:00 Ordered Deep Tendon Reflexes [WOMSER] Q1H Ot 05/31/19 05:00 Ordered Deep Tendon Reflexes [WOMSER] Q1 Ot 05/31/19 06:00 Ordered Deep Tendon Reflexes [WOMSER] Q1 Ot 05/31/19 07:00 Ordered Deep Tendon Reflexes [WOMSER] Q1 Ot 05/31/19 08:00 Ordered Deep Tendon Reflexes [WOMSER] Q1 Ot 05/31/19 09:00 Ordered Deep Tendon Reflexes [WOMSER] Q1 Ot 05/31/19 10:00 Ordered Deep Tendon Reflexes [WOMSER] Q1 Ot 05/31/19 11:00 Ordered Deep Tendon Reflexes [WOMSER] Q1 Ot 05/31/19 12:00 Ordered Deep Tendon Reflexes [WOMSER] Q1 Ot 05/31/19 13:00 Ordered Deep Tendon Reflexes [facility] 05/31/19 14:00 Ordered Deep Tendon Reflexes [[facility]SER] [facility] 05/31/19 15:00 Ordered Deep Tendon Reflexes [WOMSER] Q1 Ot 05/31/19 16:00 Ordered Deep Tendon Reflexes [WOMSER] Q1 Ot 05/31/19 17:00 Ordered Electronic Heart Tones Ext w TOCO [WOMSER] Per Oth 05/30/19 16:57 Ordered Unit Routine Peripheral IV Insertion Adult [OM.PC] Routine Oth 05/30/19 13:45 Ordered Resuscitation Status Routine Resus Stat 05/30/19 12:51 Ordered Medication Orders Betamethasone Acet/Betameth SodPhos (Celestone Soluspan 6 Mg/Ml) 12 mg IM Q24H BRADLY Stop: 05/31/19 17:01 Last Admin: 05/30/19 17:36 Dose: 12 mg Calcium Gluconate (Calcium Gluconate) 1 gm IVPUSH ASDIRECTED PRN PRN Reason: respiratory distress Lactated Ringer's (Ringers, Lactated) 1,000 mls @ 999 mls/hr IV ASDIRECTED BRADLY Last Admin: 05/30/19 14:10 Dose: 999 mls/hr Magnesium Sulfate (Magnesium Sulfate In Water Premix) 20 gm in 500 mls @ 50 mls /hr IV ASDIRECTED BRADLY Last Admin: 05/30/19 17:56 Dose: 2 gm/hr, 50 mls/hr Sodium Chloride (Saline Flush) 10 ml FLUSH ASDIRECTED PRN PRN Reason: Keep Vein Open Sodium Chloride (Saline Flush) 2.5 ml FLUSH ASDIRECTED PRN PRN Reason: Keep Vein Open Sodium Chloride (Normal Saline) 10 ml IV ASDIRECTED PRN PRN Reason: IV Use Assessment/Plan Comment:: Labor A: 33yo EDC 07/19/2019 32 6/7wks, come today due to abd pain and cramping. O +, RI, GBS unkwn. SVE 2/70/-2 soft mid (jacobo 7). States pain up to 8 until medication then down to 4. P: Admit for ops 24h. Gave IV fluid bolus, Terb 0.25sq, and IV Nubain for pain. This helped the pain and slowed the contractions some. SVE noted cervical change. Disc POC with Dr Simpson and started MgSo4 at 1756, betamethasone 12mg given at 1736. Will continue to monitor. If needed will transfer to [place].
[2019-05-30] MEDS ORDERED: Butorphanol 1 MG/ML SDV IVPUSH ONE (23:00)
[2019-05-31] MEDS: Magnesium Sulfate/Water 20 GM/500 ML BAG IV SCH (03:29)
--- NOTE | 2019-05-31 07:54 | PCM.PN ---
- General Info Date of Service: 05/31/19 Admission Dx/Problem (Free Text): Patient Status Order with Admit Dx/Problem 05/30/19 12:51 Patient Status [ADT] Routine Admission Diagnosis/Problem Admission Diagnosis/Problem - planned 05/30/19 18:43 33yo EDC 07/19/2019 32 6/7wks, come today due to abd pain and cramping. O+, RI, GBS unkwn. Functional Status: Reports: Pain Controlled - Review of Systems General: Reports: No Symptoms HEENT: Reports: No Symptoms Pulmonary: Reports: No Symptoms Cardiovascular: Reports: No Symptoms Gastrointestinal: Reports: No Symptoms Genitourinary: Reports: No Symptoms Musculoskeletal: Reports: No Symptoms Skin: Reports: No Symptoms Neurological: Reports: No Symptoms Psychiatric: Reports: No Symptoms - Patient Data Weight - Most Recent: 93.894 kg Lab Results Last 24 Hours: Laboratory Results - last 24 hr 05/30/19 05/30/19 05/30/19 Range/Units 12:40 17:29 22:19 WBC 10.71 (4.0-11.0) K/uL RBC 4.30 (4.30-5.90) M/uL Hgb 12.1 (12.0-16.0) g/dL Hct 37.4 (36.0-46.0) % MCV 87.0 (80.0-98.0) fL MCH 28.1 (27.0-32.0) pg MCHC 32.4 (31.0-37.0) g/dL RDW Std Deviation 43.0 (28.0-62.0) fl RDW Coeff of Cecilia 14 (11.0-15.0) % Plt Count 152 (150-400) K/uL MPV 12.10 H (7.40-12.00) fL Nucleated RBC % 0.0 /100WBC Nucleated RBCs # 0 K/uL Magnesium 5.0 H (1.8-2.4) mg/dL Urine Color YELLOW Urine Appearance HAZY Urine pH 6.5 (5.0-8.0) Ur Specific [place] 1.010 (1.001-1.035) Urine Protein NEGATIVE (NEGATIVE) mg/dL Urine Glucose (UA) NEGATIVE (NEGATIVE) mg/dL Urine Ketones 40 H (NEGATIVE) mg/dL Urine Occult Blood TRACE-INTACT H (NEGATIVE) Urine Nitrite NEGATIVE (NEGATIVE) Urine Bilirubin NEGATIVE (NEGATIVE) Urine Urobilinogen 0.2 (<2.0) EU/dL Ur Leukocyte Esterase NEGATIVE (NEGATIVE) 05/31/19 Range/Units 03:40 WBC (4.0-11.0) K/uL RBC (4.30-5.90) M/uL Hgb (12.0-16.0) g/dL Hct (36.0-46.0) % MCV (80.0-98.0) fL MCH (27.0-32.0) pg MCHC (31.0-37.0) g/dL RDW Std Deviation (28.0-62.0) fl RDW Coeff of Cecilia (11.0-15.0) % Plt Count (150-400) K/uL MPV (7.40-12.00) fL Nucleated RBC % /100WBC Nucleated RBCs # K/uL Magnesium 5.8 H (1.8-2.4) mg/dL Urine Color Urine Appearance Urine pH (5.0-8.0) Ur Specific [place] (1.001-1.035) Urine Protein (NEGATIVE) mg/dL Urine Glucose (UA) (NEGATIVE) mg/dL Urine Ketones (NEGATIVE) mg/dL Urine Occult Blood (NEGATIVE) Urine Nitrite (NEGATIVE) Urine Bilirubin (NEGATIVE) Urine Urobilinogen (<2.0) EU/dL Ur Leukocyte Esterase (NEGATIVE) Med Orders - Current: Current Medications Betamethasone Acet/Betameth SodPhos (Celestone Soluspan 6 Mg/Ml) 12 mg IM Q24H [facility] Stop: 05/31/19 17:01 Last Admin: 05/30/19 17:36 Dose: 12 mg Calcium Gluconate (Calcium Gluconate) 1 gm IVPUSH ASDIRECTED PRN PRN Reason: respiratory distress Lactated Ringer's (Ringers, Lactated) 1,000 mls @ 999 mls/hr IV ASDIRECTED BRADLY Last Admin: 05/30/19 14:10 Dose: 999 mls/hr Magnesium Sulfate (Magnesium Sulfate In Water Premix) 20 gm in 500 mls @ 50 mls /hr IV ASDIRECTED BRADLY Last Admin: 05/31/19 03:29 Dose: 2 gm/hr, 50 mls/hr Sodium Chloride (Saline Flush) 10 ml FLUSH ASDIRECTED PRN PRN Reason: Keep Vein Open Sodium Chloride (Saline Flush) 2.5 ml FLUSH ASDIRECTED PRN PRN Reason: Keep Vein Open Sodium Chloride (Normal Saline) 10 ml IV ASDIRECTED PRN PRN Reason: IV Use Discontinued Medications Butorphanol Tartrate (Stadol) 1 mg IVPUSH ONETIME ONE Stop: 05/30/19 23:01 Last Admin: 05/30/19 23:52 Dose: 1 mg Magnesium Sulfate 2 gm/ Premix 50 mls @ 50 mls/hr IV ONETIME ONE Stop: 05/30/19 18:00 Last Admin: 05/30/19 17:25 Dose: 50 mls/hr Nalbuphine HCl (Nubain) 10 mg IVPUSH ONETIME ONE Stop: 05/30/19 13:44 Last Admin: 05/30/19 14:18 Dose: 10 mg Terbutaline Sulfate (Brethine) 0.25 mg SUBCUT ONETIME ONE Stop: 05/30/19 15:17 Last Admin: 05/30/19 15:27 Dose: 0.25 mg Terbutaline Sulfate (Brethine) Confirm Administered Dose 1 mg .ROUTE .STK-MED ONE Stop: 05/30/19 15:20 Terbutaline Sulfate (Brethine) 0.25 mg SUBCUT ONETIME ONE Stop: 05/30/19 22:55 Last Admin: 05/30/19 23:11 Dose: 0.25 mg - Exam General: Alert, Oriented, Cooperative, No Acute Distress Lungs: Clear to Auscultation, Normal Respiratory Effort. No: Decreased Breath Sounds Cardiovascular: Regular Rate, Regular Rhythm, No Murmurs GI/Abdominal Exam: Soft, Non-Tender (Female) Exam: Deferred. No: Cervical Fluid, Vaginal Bleeding Back Exam: Normal Inspection, Full Range of Motion. No: CVA Tenderness (L), CVA Tenderness (R), Decreased Range of Motion Extremities: Normal Inspection, Normal Range of Motion, Non-Tender, No Pedal Edema, Other (DTR +1). No: Pedal Edema, Leg Pain Skin: Warm, Dry, Intact Neurological: No New Focal Deficit, Normal Speech, Normal Tone, Strength Equal Bilateral Psy/Mental Status: Alert, Normal Affect, Normal Mood Sepsis Event Note - Evaluation Sepsis Screening Result: No Definite Risk - Problem List & Annotations (1) Supervision of normal IUP (intrauterine ) in primigravida SNOMED Code(s): 29474561, 725521785, 409508691, 193648310 Code(s): Z34.00 - ENCNTR FOR SUPRVSN OF NORMAL FIRST , UNSP TRIMESTER Status: Acute Priority: High Current Visit: Yes Qualifiers: Trimester: third trimester Qualified Code(s): Z34.03 - Encounter for supervision of normal first , third trimester (2) contractions SNOMED Code(s): 200200474 Code(s): O47.9 - FALSE LABOR, UNSPECIFIED Status: Acute Priority: High Current Visit: Yes - Problem List Review Problem List Initiated/Reviewed/Updated: Yes - My Orders Last 24 Hours: My Active Orders 05/30/19 16:57 Communication Order [RC] Per Unit Routine Communication Order [RC] Per Unit Routine Heart Tones [RC] ASDIRECTED Height and Weight [RC] DAILY Intake and Output [RC] QSHIFT Notify Provider [RC] PRN Notify Provider [RC] PRN Vital Signs [RC] PER UNIT ROUTINE Calcium Gluconate 1 gm IVPUSH ASDIRECTED PRN Auscultate Breath Sounds [OM.PC] Per Unit Routine Electronic Heart Tones Ext w TOCO [WOMSER] Per Unit Routine 05/30/19 17:00 Betamet Acet/Betamet Na Phos [Celestone Soluspan 6 MG/ML] 12 mg IM Q24H Magnesium Sulfate/Water [Magnesium Sulfate in Water Premix] 20 gm in 500 ml IV ASDIRECTED Deep Tendon Reflexes [WOMSER] Q1H 05/30/19 18:00 Deep Tendon Reflexes [WOMSER] Q1H 05/30/19 19:00 Deep Tendon Reflexes [WOMSER] Q1H 05/30/19 20:00 Deep Tendon Reflexes [WOMSER] Q1H 05/30/19 20:50 GBS [CULTURE GROUP B STREP] [RM] Routine 05/30/19 21:00 Deep Tendon Reflexes [WOMSER] Q1H 05/30/19 22:00 Deep Tendon Reflexes [WOMSER] Q1H 05/30/19 23:00 Deep Tendon Reflexes [WOMSER] Q1H 05/31/19 00:00 Deep Tendon Reflexes [WOMSER] Q1H 05/31/19 01:00 Deep Tendon Reflexes [WOMSER] [facility] 05/31/19 02:00 Deep Tendon Reflexes [WOMSER] [facility] 05/31/19 03:00 Deep Tendon Reflexes [WOMSER] [facility] 05/31/19 04:00 Deep Tendon Reflexes [WOMSER] [facility] 05/31/19 05:00 Deep Tendon Reflexes [WOMSER] [facility] 05/31/19 06:00 Deep Tendon Reflexes [WOMSER] [facility] 05/31/19 07:00 Deep Tendon Reflexes [WOMSER] [facility] 05/31/19 08:00 Deep Tendon Reflexes [WOMSER] [facility] 05/31/19 09:00 Deep Tendon Reflexes [WOMSER] [facility] 05/31/19 10:00 Deep Tendon Reflexes [WOMSER] [facility] 05/31/19 11:00 Deep Tendon Reflexes [WOMSER] [facility] 05/31/19 12:00 Deep Tendon Reflexes [WOMSER] [facility] 05/31/19 13:00 Deep Tendon Reflexes [WOMSER] [facility] 05/31/19 14:00 Deep Tendon Reflexes [WOMSER] [facility] 05/31/19 15:00 Deep Tendon Reflexes [WOMSER] [facility] 05/31/19 16:00 Deep Tendon Reflexes [WOMSER] [facility] 05/31/19 17:00 Deep Tendon Reflexes [WOMSER] [facility] 05/31/19 Breakfast Regular Diet [DIET] - Plan Plan:: Labor A: 33yo EDC 07/19/2019 32 6/7wks, come today due to abd pain and cramping. O +, RI, GBS unkwn. SVE 2/70/-2 soft mid (jacobo 7). States pain up to 8 until medication then down to 4. P: Admit for ops 24h. Gave IV fluid bolus, Terb 0.25sq, and IV Nubain for pain. This helped the pain and slowed the contractions some. SVE noted cervical change. Disc POC with Dr Simpson and started MgSo4 at 1756, betamethasone 12mg given at 1736. Will continue to monitor. If needed will transfer to [facility].
[2019-05-31] MEDS: Betamethasone Acetate/Betamethasone Sod Phosphate 30 MG/5 ML MDV IM SCH (17:30)
--- NOTE | 2019-06-03 07:52 | PCM.DCSUM1 ---
Discharge Summary - Hospital Course Free Text/Narrative:: Late entry discharge. Pt released home with labor precautions. Diagnosis: Stroke: No Modified Valentine Scale: No Symptoms at All Modified Tona Scale Score: 0 - Discharge Data Discharge Date: 05/31/19 Discharge Disposition: Home, Self-Care 01 Condition: Stable - Referral to Home Health Primary Care Physician: Marlene Torrez CNM - Discharge Diagnosis/Problem(s) (1) Supervision of normal IUP (intrauterine ) in primigravida SNOMED Code(s): 50954692, 749078764, 891788361, 549584152 ICD Code: Z34.00 - ENCNTR FOR SUPRVSN OF NORMAL FIRST , UNSP TRIMESTER Status: Acute Priority: High Qualifiers: Trimester: third trimester Qualified Code(s): Z34.03 - Encounter for supervision of normal first , third trimester (2) contractions SNOMED Code(s): 245370090 ICD Code: O47.9 - FALSE LABOR, UNSPECIFIED Status: Acute Priority: High - Patient Instructions Diet: Usual Diet as Tolerated Activity: As Tolerated, Rest and Relax Today Driving: May Drive Today Showering/Bathing: May Shower Notify Provider of: Fever, Increased Pain, Swelling and Redness, Drainage, Nausea and/or Vomiting - Discharge Plan *PRESCRIPTION DRUG MONITORING PROGRAM REVIEWED*: Not Applicable *COPY OF PRESCRIPTION DRUG MONITORING REPORT IN PATIENT EDMAR: Not Applicable Home Medications: Home Meds NIFEdipine [Nifedical XL] 30 mg PO DAILY #30 tab.er 06/01/19 [Rx] Omeprazole 20 mg PO DAILY 06/01/19 [History] CKH843/Iron Fumarate/FA/DSS [ 19 Tablet] 1 tab PO DAILY 06/01/19 [ History] Pyridoxine HCl (Vitamin B6) [B-6] 1 tab PO DAILY 06/01/19 [History] Oxygen Therapy Mode: Room Air Patient Handouts: Labor and Information, [id number] Referrals: [facility] [Outside] Tangela Crawford CNM, [facility] [Mid-] - 06/03/19 11:15 am - Discharge Summary/Plan Comment DC Time >30 min.: No - General Info Date of Service: 05/31/19 Admission Dx/Problem (Free Text: Patient Status Order with Admit Dx/Problem 05/30/19 12:51 Patient Status [ADT] Routine Admission Diagnosis/Problem Admission Diagnosis/Problem - planned 05/30/19 18:43 33yo EDC 07/19/2019 32 6/7wks, come today due to abd pain and cramping. O+, RI, GBS unkwn. Functional Status: Reports: Pain Controlled, Tolerating Diet, Ambulating, Urinating - Review of Systems General: Reports: No Symptoms HEENT: Reports: No Symptoms Pulmonary: Reports: No Symptoms Cardiovascular: Reports: No Symptoms Gastrointestinal: Reports: No Symptoms Genitourinary: Reports: No Symptoms Musculoskeletal: Reports: No Symptoms Skin: Reports: No Symptoms Neurological: Reports: No Symptoms Psychiatric: Reports: No Symptoms - Patient Data Weight - Most Recent: 93.894 kg STACEY Results - Last 24 hrs: Microbiology 05/30/19 20:50 Group B Streptococcus Culture - Final Vaginal/Rectal NEGATIVE STREP GROUP B Med Orders - Current: Current Medications Discontinued Medications Betamethasone Acet/Betameth SodPhos (Celestone Soluspan 6 Mg/Ml) 12 mg IM Q24H [facility] Stop: 05/31/19 17:01 Last Admin: 05/31/19 17:30 Dose: 12 mg Butorphanol Tartrate (Stadol) 1 mg IVPUSH ONETIME ONE Stop: 05/30/19 23:01 Last Admin: 05/30/19 23:52 Dose: 1 mg Calcium Gluconate (Calcium Gluconate) 1 gm IVPUSH ASDIRECTED PRN PRN Reason: respiratory distress Lactated Ringer's (Ringers, Lactated) 1,000 mls @ 999 mls/hr IV ASDIRECTED [facility] Last Admin: 05/30/19 14:10 Dose: 999 mls/hr Magnesium Sulfate (Magnesium Sulfate In Water Premix) 20 gm in 500 mls @ 50 mls /hr IV ASDIRECTED [facility] Last Admin: 05/31/19 03:29 Dose: 2 gm/hr, 50 mls/hr Magnesium Sulfate 2 gm/ Premix 50 mls @ 50 mls/hr IV ONETIME ONE Stop: 05/30/19 18:00 Last Admin: 05/30/19 17:25 Dose: 50 mls/hr Nalbuphine HCl (Nubain) 10 mg IVPUSH ONETIME ONE Stop: 05/30/19 13:44 Last Admin: 05/30/19 14:18 Dose: 10 mg Sodium Chloride (Saline Flush) 10 ml FLUSH ASDIRECTED PRN PRN Reason: Keep Vein Open Sodium Chloride (Saline Flush) 2.5 ml FLUSH ASDIRECTED PRN PRN Reason: Keep Vein Open Sodium Chloride (Normal Saline) 10 ml IV ASDIRECTED PRN PRN Reason: IV Use Terbutaline Sulfate (Brethine) 0.25 mg SUBCUT ONETIME ONE Stop: 05/30/19 15:17 Last Admin: 05/30/19 15:27 Dose: 0.25 mg Terbutaline Sulfate (Brethine) Confirm Administered Dose 1 mg .ROUTE .STK-MED ONE Stop: 05/30/19 15:20 Terbutaline Sulfate (Brethine) 0.25 mg SUBCUT ONETIME ONE Stop: 05/30/19 22:55 Last Admin: 05/30/19 23:11 Dose: 0.25 mg - Exam General: Reports: Alert, Oriented, Cooperative, No Acute Distress Lungs: Reports: Clear to Auscultation, Normal Respiratory Effort Cardiovascular: Reports: Regular Rate, Regular Rhythm GI/Abdominal Exam: Soft, Non-Tender (Female) Exam: Normal External Exam, Normal Bimanual Exam, Cervical Dilatation (No change in cervical exam) Rectal (Female) Exam: Deferred Back Exam: Reports: Normal Inspection, Full Range of Motion Extremities: Normal Inspection, Normal Range of Motion, Non-Tender, No Pedal Edema Skin: Reports: Warm, Dry, Intact Neurological: Reports: No New Focal Deficit, Normal Gait, Normal Speech, Normal Tone, Strength Equal Bilateral Psy/Mental Status: Reports: Alert, Normal Affect, Normal Mood
== END 2019-05-31 17:40 | disposition home or self-care (01) ==
LOC: MW.OB 12:29 → MW.OBCHECK 12:29 → MW.OB 12:47
PROVIDERS: ADMIT Obstetrics & Gynecology; ATTEND Obstetrics & Gynecology
DX: O47.9 False labor, unspecified (principal); O99.213 Obesity complicating pregnancy, third trimester; E66.9 Obesity, unspecified; Z3A.32 32 weeks gestation of pregnancy; Z88.2 Allergy status to sulfonamides
CPT/HCPCS: 36415; 59025; 76775; 81003; 83735; 85027; 87081; 96365; 96366; 96372; 96375; 96376; G0378; J0595; J0702; J2300; J3105; J3475; J7120

== ENCOUNTER 2019-06-27 12:27 | Inpatient (IN) | payer SELFPAY ==
[2019-06-27] MEDS ORDERED: Sodium Chloride 0.9% 10 ML SDV IV PRN (13:39)
[2019-06-27] MEDS ORDERED: Tranexamic Acid 1,000 MG in Sodium Chloride 0.9% 100 ML IV PRN (13:39)
[2019-06-27] MEDS ORDERED: Methylergonovine 0.2 MG/1 ML Amp IM PRN (13:39)
[2019-06-27] MEDS ORDERED: Sodium Chloride 0.9% 10 ML Syringe FLUSH PRN ×2 (13:39→21:52)
[2019-06-27] MEDS ORDERED: Butorphanol 1 MG/ML SDV IVPUSH PRN (13:39)
[2019-06-27] MEDS ORDERED: Misoprostol 200 MCG Tab PO PRN (13:39)
[2019-06-27] MEDS ORDERED: Water For Irrigation,Sterile 1,000 ML Container IRR PRN (13:39)
[2019-06-27] MEDS ORDERED: Carboprost Tromethamine 250 MCG/1 ML Amp IM PRN (13:39)
[2019-06-27] MEDS ORDERED: Lidocaine 1% 50 ML MDV INJECT PRN (13:39)
[2019-06-27] MEDS ORDERED: Nalbuphine 10 MG/1 ML Vial IVPUSH PRN (13:39)
[2019-06-27] MEDS ORDERED: Sodium Chloride 0.9% 2.5 ML Syringe FLUSH PRN ×2 (13:39→21:52)
[2019-06-27] MEDS ORDERED: Oxytocin/0.9 % Sodium Chloride 30 UNIT/500 ML BAG IV SCH ×2 (13:45→19:30)
--- NOTE | 2019-06-27 14:12 | PCM.LDHP ---
L&D History of Present Illness - General Date of Service: 06/27/19 Admit Problem/Dx: Patient Status Order with Admit Dx/Problem 06/27/19 13:06 Patient Status [ADT] Routine 06/27/19 13:39 Patient Status [ADT] Routine Admission Diagnosis/Problem Admission Diagnosis/Problem Planned 06/27/19 14:07 Brittany is a 34 yo at 36.6 weeks gestation (GWENDOLYN 07/19/2019) that presents to L &D today from office for C/O strong, painful contractions every 4-5 min. SVE in office , mid-position. Amnisure positive today. O pos, RI, GBS neg ( 05/30/2019). Pertient history includes: Obesity (BMI 32.9), Hx of PTL this , would to right breast/chest wall drained 1 week ago. Source of Information: Patient History Limitations: Reports: No Limitations - History of Present Illness Timing/Duration: Reports: gradual onset Location, : Reports: Abdomen Quality: Reports: Sharp Severity: Severe Improves with: Reports: Movement Worsens with: Reports: None - Related Data Allergies/Adverse Reactions: Allergies Allergy/AdvReac Type Severity Reaction Status Date / Time aspirin Allergy Tachycardia Verified 05/30/19 12:49 latex Allergy Rash Verified 06/01/19 12:01 Home Medications: Home Meds NIFEdipine [Nifedical XL] 30 mg PO DAILY #30 tab.er 06/01/19 [Rx] Omeprazole 20 mg PO DAILY 06/01/19 [History] Prenat 115/Iron Fum/Folic/Dss [ 19 Tablet] 1 tab PO DAILY 06/01/19 [ History] Pyridoxine HCl (Vitamin B6) [B-6] 1 tab PO DAILY 06/01/19 [History] Calcium Carbonate [Calcium] 1 tab PO DAILY 06/27/19 [History] Folic Acid 1 tab PO DAILY 06/27/19 [History] Past Medical History - Past Health History Medical/Surgical History: Denies Medical/Surgical History HEENT History: Reports: None Cardiovascular History: Reports: Other (See Below) Other Cardiovascular History: Hypercholesterolemia Respiratory History: Reports: None Gastrointestinal History: Reports: GERD Genitourinary History: Reports: None INTERVENTIONAL CARDIOLOGIST History: Reports: : 1 Para: 0 LMP (Approximate): Other OB/BYN History: ASCUS pap 06/2018, colposcopy 07/2018. Musculoskeletal History: Reports: None Neurological History: Reports: None Psychiatric History: Reports: None Endocrine/Metabolic History: Reports: Obesity/BMI 30+ Hematologic History: Reports: None Immunologic History: Reports: None Oncologic (Cancer) History: Reports: None Dermatologic History: Reports: None - Infectious Disease History Infectious Disease History: Reports: Chicken Pox, Hepatitis A - Past Surgical History GI Surgical History: Reports: Cholecystectomy Social & Family History - Family History Family Medical History: Noncontributory HEENT: Reports: Impaired Vision Cardiac: Reports: High Cholesterol, Hypertension, [place] Respiratory: Reports: Asthma GI: Reports: None : Reports: None OBGYN: Reports: Musculoskeletal: Reports: RA Neurological: Reports: CVA Psychiatric: Reports: None Endocrine/Metabolic: Reports: Hypothyroidism Hematologic: Reports: None Immunologic: Reports: None Dermatologic: Reports: None Oncologic: Reports: Breast - Tobacco Use Smoking Status *Q: Never Smoker Tobacco Use Within Last Twelve Months: No - Caffeine Use Caffeine Use: Reports: None - Alcohol Use Alcohol Use History: No H&P Review of Systems - Review of Systems: Review Of Systems: Comprehensive ROS is negative, except as noted in HPI. General: Reports: No Symptoms HEENT: Reports: No Symptoms Pulmonary: Reports: No Symptoms Cardiovascular: Reports: No Symptoms Gastrointestinal: Reports: No Symptoms Genitourinary: Reports: No Symptoms Musculoskeletal: Reports: No Symptoms Skin: Reports: No Symptoms Psychiatric: Reports: No Symptoms Neurological: Reports: No Symptoms Hematologic/Lymphatic: Reports: No Symptoms Immunologic: Reports: No Symptoms L&D Exam - Exam Exam: See Below - Vital Signs Weight: 210 lb - OB Specific Fundal Height In cm: 38 Contraction Duration (sec): 60-90 Contraction Frequency (min): 4-5 Contraction Intensity: Strong Movement: Active Heart Tones: Present Heart Tones per Min: 135 Heart Rate (FHR) Variability: Moderate (6-25 bmp) Presentation: Vertex - Blanc Score Blanc Score Cervix Position: Midposition Blanc Score Consistency: Soft Blanc Score Effacement: >80% Blanc Score Dilation: 3-4 cm Blanc Score Infant's Station: -1 ,0 Blanc Score Total: 10 - Exam General: Alert, Oriented HEENT: Conjunctiva Clear, EACs Clear, EOMI, Hearing Intact, Mucosa Moist & [place] , PERRLA Neck: Supple, Trachea Midline Lungs: Clear to Auscultation, Normal Respiratory Effort Cardiovascular: Regular Rate, Regular Rhythm GI/Abdominal Exam: Normal Bowel Sounds, Soft, Non-Tender, No Organomegaly, No Distention, Pelvis Stable, Other (Gravid uterus) Rectal Exam: Deferred Genitourinary: Normal external exam, Normal bimanual exam Back Exam: Normal Inspection, Full Range of Motion Extremities: Normal Inspection, Normal Range of Motion, Non-Tender, No Pedal Edema, Normal Capillary Refill Skin: Warm, Dry, Intact Neurological: Cranial Nerves Intact, Reflexes Equal Bilateral Psychiatric: Alert, Normal Affect, Normal Mood - Problem List (1) Uterine contractions SNOMED Code(s): 419667578 ICD Code: EPQ8259 - Status: Acute Priority: High Current Visit: Yes (2) AMA (advanced maternal age) multigravida 35+ SNOMED Code(s): 564378860 ICD Code: O09.529 - SUPERVISION OF ELDERLY MULTIGRAVIDA, UNSPECIFIED TRIMESTER Status: Acute Priority: High Current Visit: Yes (3) 36 weeks gestation of SNOMED Code(s): 50505677 ICD Code: Z3A.36 - 36 WEEKS GESTATION OF Status: Acute Priority : High Current Visit: Yes (4) Supervision of normal IUP (intrauterine ) in primigravida SNOMED Code(s): 21248489, 247754130, 200306101, 359762156 ICD Code: Z34.00 - ENCNTR FOR SUPRVSN OF NORMAL FIRST , UNSP TRIMESTER Status: Acute Priority: High Current Visit: Yes Qualifiers: Trimester: third trimester Qualified Code(s): Z34.03 - Encounter for supervision of normal first , third trimester Problem List Initiated/Reviewed/Updated: Yes Orders Last 24hrs: Active Orders 24 hr Category Date Time Status Patient Status [ADT] Routine ADT 06/27/19 13:06 Active Patient Status [ADT] Routine ADT 06/27/19 13:39 Active Heart Tones [RC] CONTINUOUS Care 06/27/19 13:39 Active Non Stress Test [RC] PER UNIT ROUTINE Care 06/27/19 13:06 Active Non Stress Test [RC] PER UNIT ROUTINE Care 06/27/19 13:39 Active May Shower [RC] ASDIRECTED Care 06/27/19 13:39 Active Notify Provider [RC] PRN Care 06/27/19 13:39 Active Up ad Mayela [RC] ASDIRECTED Care 06/27/19 13:06 Active Up ad Mayela [RC] ASDIRECTED Care 06/27/19 13:39 Active Vaginal Exam [RC] Click to Edit Care 06/27/19 13:06 Active Vaginal Exam [RC] PRN Care 06/27/19 13:39 Active Vital Signs [RC] PER UNIT ROUTINE Care 06/27/19 13:06 Active Vital Signs [RC] PER UNIT ROUTINE Care 06/27/19 13:39 Active CBC W/O DIFF,HEMOGRAM [HEME] Routine Lab 06/27/19 13:39 Ordered RPR (SYPHILIS SERO) W/ RFLX [REF] Routine Lab 06/27/19 13:39 Ordered TYPE AND SCREEN [BBK] Routine Lab 06/27/19 13:39 Ordered Butorphanol [Stadol] Med 06/27/19 13:39 Active 1 mg IVPUSH Q1H PRN Carboprost Tromethamine [Hemabate DS] Med 06/27/19 13:39 Active 250 mcg IM ASDIRECTED PRN Lactated Ringers [Ringers, Lactated] 1,000 ml Med 06/27/19 13:45 Active IV ASDIRECTED Lidocaine 1% [Xylocaine 1%] Med 06/27/19 13:39 Active 50 ml INJECT ONETIME PRN Methylergonovine [Methergine] Med 06/27/19 13:39 Active 0.2 mg IM ASDIRECTED PRN Nalbuphine [Nubain] Med 06/27/19 13:39 Active 10 mg IVPUSH Q1H PRN Oxytocin/0.9 % Sodium Chloride [Oxytocin 30 Unit/500 ML Med 06/27/19 13:45 Active -NS] 30 unit in 500 ml IV TITRATE Sodium Chloride 0.9% [Normal Saline] Med 06/27/19 13:39 Active 10 ml IV ASDIRECTED PRN Sodium Chloride 0.9% [Saline Flush] Med 06/27/19 13:39 Active 10 ml FLUSH ASDIRECTED PRN Sodium Chloride 0.9% [Saline Flush] Med 06/27/19 13:39 Active 2.5 ml FLUSH ASDIRECTED PRN Tranexamic Acid [Cyklokapron] 1,000 mg Med 06/27/19 13:39 Active Sodium Chloride 0.9% [Normal Saline] 100 ml IV ONETIME Water For Irrigation,Sterile [Sterile Water for Med 06/27/19 13:39 Active Irrigation] 1,000 ml IRR ASDIRECTED PRN miSOPROStoL [Cytotec] Med 06/27/19 13:39 Active 200 mcg PO ONETIME PRN Scalp Electrode [WOMSER] Per Unit Routine Oth 06/27/19 13:39 Ordered Peripheral IV Insertion Adult [OM.PC] Routine Oth 06/27/19 13:39 Ordered Resuscitation Status Routine Resus Stat 06/27/19 13:06 Ordered Medication Orders Butorphanol Tartrate (Stadol) 1 mg IVPUSH Q1H PRN PRN Reason: Pain Carboprost Tromethamine (Hemabate Ds) 250 mcg IM ASDIRECTED PRN PRN Reason: Post Hemorrhage Tranexamic Acid 1,000 mg/ (Sodium Chloride) 110 mls @ 660 mls/hr IV ONETIME PRN PRN Reason: Bleeding Lactated Ringer's (Ringers, Lactated) 1,000 mls @ 150 mls/hr IV ASDIRECTED BRADLY Oxytocin/Sodium Chloride (Oxytocin 30 Unit/500 Ml-Ns) 30 unit in 500 mls @ 500 mls/hr IV TITRATE BRADLY Lidocaine HCl (Xylocaine 1%) 50 ml INJECT ONETIME PRN PRN Reason: Laceration repair Methylergonovine Maleate (Methergine) 0.2 mg IM ASDIRECTED PRN PRN Reason: Post Hemorrhage Misoprostol (Cytotec) 200 mcg PO ONETIME PRN PRN Reason: Post Hemorrhage Nalbuphine HCl (Nubain) 10 mg IVPUSH Q1H PRN PRN Reason: Pain (severe 7-10) Sodium Chloride (Saline Flush) 10 ml FLUSH ASDIRECTED PRN PRN Reason: Keep Vein Open Sodium Chloride (Saline Flush) 2.5 ml FLUSH ASDIRECTED PRN PRN Reason: Keep Vein Open Sodium Chloride (Normal Saline) 10 ml IV ASDIRECTED PRN PRN Reason: IV Use Sterile Water (Sterile Water For Irrigation) 1,000 ml IRR ASDIRECTED PRN PRN Reason: delivery Assessment/Plan Comment:: Admit to labor and delivery today for SROM at unknown time, labor progression, at 36.6 weeks gestation.
[2019-06-27] MEDS ORDERED: Lidocaine 1% 2 ML ONE (14:16)
[2019-06-27] MEDS: Lactated Ringers 1,000 ML IV SCH ×3 (14:22→15:40)
--- NOTE | 2019-06-27 14:28 | PCM.PRNOTE ---
- Free Text/Narrative Note: Requested for IV access after previous failed attempts. Discussed, ? answered. #20g L hand on 1st attempt. Skin localized with 0.6ml 1 Lidocaine. Tolerated well.
[2019-06-27] MEDS ORDERED: fentaNYL 100 MCG/2 ML SDV ONE (14:55)
[2019-06-27] MEDS ORDERED: Ropivacaine HCl/PF 100 ML ONE (14:55)
[2019-06-27] MEDS ORDERED: Ropivacaine 0.2% PF 2 MG/ML 20 ML SDV ONE (14:55)
--- NOTE | 2019-06-27 15:44 | PCM.PREANE ---
Preanesthetic Assessment - Procedure Proposed Procedure: LAUREL - Anesthesia/Transfusion/Family Hx Anesthesia History: Prior Anesthesia Without Reaction Family History of Anesthesia Reaction: No Transfusion History: No Prior Transfusion(s) Intubation History: Unknown - Review of Systems General: No Symptoms Pulmonary: No Symptoms Cardiovascular: No Symptoms Gastrointestinal: No Symptoms Neurological: No Symptoms Other: Reports: Anxiety - Physical Assessment NPO Status Date: 06/27/19 NPO Status Time: 15:41 (Clear liquids) Height: 1.68 m Weight: 95.254 kg ASA Class: 2 Mental Status: Alert & Oriented x3 Airway Class: Mallampati = 2 Dentition: Reports: Normal Dentition Thyro-Mental Finger Breadths: 3 Mouth Opening Finger Breadths: 3 ROM/Head Extension: Full Lungs: Clear to Auscultation Cardiovascular: Regular Rate - Lab Values: Laboratory Last Values WBC 11.56 K/uL (4.0-11.0) H 06/27/19 14:15 RBC 4.52 M/uL (4.30-5.90) 06/27/19 14:15 Hgb 12.9 g/dL (12.0-16.0) 06/27/19 14:15 Hct 39.4 % (36.0-46.0) 06/27/19 14:15 MCV 87.2 fL (80.0-98.0) 06/27/19 14:15 MCH 28.5 pg (27.0-32.0) 06/27/19 14:15 MCHC 32.7 g/dL (31.0-37.0) 06/27/19 14:15 RDW Std Deviation 43.2 fl (28.0-62.0) 06/27/19 14:15 RDW Coeff of Cecilia 14 % (11.0-15.0) 06/27/19 14:15 Plt Count 164 K/uL (150-400) 06/27/19 14:15 MPV 12.80 fL (7.40-12.00) H 06/27/19 14:15 Nucleated RBC % 0.0 /100WBC 06/27/19 14:15 Nucleated RBCs # 0 K/uL 06/27/19 14:15 Blood Type O POSITIVE 06/27/19 14:15 Antibody Screen NEGATIVE 06/27/19 14:15 - Allergies Allergies/Adverse Reactions: Allergies Allergy/AdvReac Type Severity Reaction Status Date / Time aspirin Allergy Tachycardia Verified 05/30/19 12:49 latex Allergy Rash Verified 06/01/19 12:01 - Blood Blood Available: No Product(s) Available: None - Anesthesia Plan Pre-Op Medication Ordered: None - Acknowledgements Anesthesia Type Planned: Epidural Pt an Appropriate Candidate for the Planned Anesthesia: Yes Alternatives and Risks of Anesthesia Discussed w Pt/Guardian: Yes Pt/Guardian Understands and Agrees with Anesthesia Plan: Yes Additional Comments: Discussed. ? answered. Wishes to proceed. Permit signed. Bolus in progress. PreAnesthesia Questionnaire - Past Health History Medical/Surgical History: Denies Medical/Surgical History HEENT History: Reports: None Cardiovascular History: Reports: Other (See Below) Other Cardiovascular History: Hypercholesterolemia Respiratory History: Reports: None Gastrointestinal History: Reports: GERD Genitourinary History: Reports: None CONVEYOR MONITOR History: Reports: Other OB/BYN History: ASCUS pap 06/2018, colposcopy 07/2018. Musculoskeletal History: Reports: None Neurological History: Reports: None Psychiatric History: Reports: None Endocrine/Metabolic History: Reports: Obesity/BMI 30+ Hematologic History: Reports: None Immunologic History: Reports: None Oncologic (Cancer) History: Reports: None Dermatologic History: Reports: None - Infectious Disease History Infectious Disease History: Reports: Chicken Pox, Hepatitis A - Past Surgical History GI Surgical History: Reports: Cholecystectomy - SUBSTANCE USE Smoking Status *Q: Never Smoker Tobacco Use Within Last Twelve Months: No - HOME MEDS Home Medications: Home Meds NIFEdipine [Nifedical XL] 30 mg PO DAILY #30 tab.er 06/01/19 [Rx] Omeprazole 20 mg PO DAILY 06/01/19 [History] Prenat 115/Iron Fum/Folic/Dss [ 19 Tablet] 1 tab PO DAILY 06/01/19 [ History] Pyridoxine HCl (Vitamin B6) [B-6] 1 tab PO DAILY 06/01/19 [History] Calcium Carbonate [Calcium] 1 tab PO DAILY 06/27/19 [History] Folic Acid 1 tab PO DAILY 06/27/19 [History] - CURRENT (IN HOUSE) MEDS Current Meds: Current Medications Butorphanol Tartrate (Stadol) 1 mg IVPUSH Q1H PRN PRN Reason: Pain Carboprost Tromethamine (Hemabate Ds) 250 mcg IM ASDIRECTED PRN PRN Reason: Post Hemorrhage Tranexamic Acid 1,000 mg/ (Sodium Chloride) 110 mls @ 660 mls/hr IV ONETIME PRN PRN Reason: Bleeding Lactated Ringer's (Ringers, Lactated) 1,000 mls @ 150 mls/hr IV ASDIRECTED [facility] Last Admin: 06/27/19 15:40 Dose: 999 mls/hr Oxytocin/Sodium Chloride (Oxytocin 30 Unit/500 Ml-Ns) 30 unit in 500 mls @ 500 mls/hr IV TITRATE [facility] Lidocaine HCl (Xylocaine 1%) 50 ml INJECT ONETIME PRN PRN Reason: Laceration repair Methylergonovine Maleate (Methergine) 0.2 mg IM ASDIRECTED PRN PRN Reason: Post Hemorrhage Misoprostol (Cytotec) 200 mcg PO ONETIME PRN PRN Reason: Post Hemorrhage Nalbuphine HCl (Nubain) 10 mg IVPUSH Q1H PRN PRN Reason: Pain (severe 7-10) Sodium Chloride (Saline Flush) 10 ml FLUSH ASDIRECTED PRN PRN Reason: Keep Vein Open Sodium Chloride (Saline Flush) 2.5 ml FLUSH ASDIRECTED PRN PRN Reason: Keep Vein Open Sodium Chloride (Normal Saline) 10 ml IV ASDIRECTED PRN PRN Reason: IV Use Sterile Water (Sterile Water For Irrigation) 1,000 ml IRR ASDIRECTED PRN PRN Reason: delivery Discontinued Medications Fentanyl (Sublimaze) Confirm Administered Dose 100 mcg .ROUTE .STK-MED ONE Stop: 06/27/19 14:56 Lidocaine HCl (Xylocaine-Mpf 1%) Confirm Administered Dose 2 mls @ as directed .ROUTE .STK-MED ONE Stop: 06/27/19 14:17 Ropivacaine (Naropin 0.2%) Confirm Administered Dose 100 mls @ as directed .ROUTE .STK-MED ONE Stop: 06/27/19 14:56 Ropivacaine (Naropin 0.2%) Confirm Administered Dose 20 ml .ROUTE .STK-MED ONE Stop: 06/27/19 14:56
--- NOTE | 2019-06-27 15:50 | PCM.SN.2 ---
- Free Text/Narrative Note: Requested for LAUREL on , active labor, pain 8/10. Bolus in progress. Discussed, ? answered, permit signed, wishes to proceed. Procedure without issues. Space ID'd via VAELNTINE with saline/air on . Reconfirmed with saline. Cath to 8cm without problems. Occlusive Drsg. Test NEGATIVE. Bolus given slowly, significant decrease in discomfort. VSS. Infusion started 8ml/hr with 4ml q15 bolus. Tolerated well VSS Pain 1/10 presently.
[2019-06-27] MEDS ORDERED: Terbutaline 1 MG/ML SDV SUBCUT PRN (19:28)
--- NOTE | 2019-06-27 21:46 | PCM.DEL ---
L & D Note - General Info Date of Service: 06/27/19 Mother's Due Date: 07/19/19 - Delivery Note Labor: Spontaneous Delivery Outcome: Livebirth Infant Delivery Method: Spontaneous Vaginal Delivery-Single Infant Delivery Mode: Spontaneous Presentation: Right Occiput Anterior (LYUDMILA) Nuchal Cord: None Anesthesia Type: Epidural Amniotic Fluid Description: Clear Episiotomy Type: None Laceration: 2nd Degree (Repaired with 3.[address]) Suture type: Vicryl Suture size: 3-0 Placenta: Intact, Spontaneous (Intact, 3VC, Dong) Cord: 3 Vessels Estimated Blood Loss: 200 Resuscitation Needed: No : Stimulated, Warmed, [place] Used Score 1 min: 8 Score 5 min: 9 Second Stage Interventions: Reports: Encouragement Given, Pushing Effectively, Pushing, Stirrups/Leg Supports Delivery Comments (Free Text/Narrative):: Brittany is a 34 yo at 36.6 weeks gestation S/P uncomplicated of viable, vigorous NBF with spontaneous cries. NBF placed to maternal abdomen upon , warmed, dried, and stimulated. Umbilical cord remained intact until pulsation ceased, clamped x2 and cut by FOB. Placenta was birthed intact, Dong, 3VC approximately 5-7 min after of NBF. Apgars 8/9, weight 3190 g (7 lb 1 oz). 2nd degree laceration noted to posterior vaginal wall and perineum, repaired with 3.[address], hemostatic. Uterus firm @ U, scant rubra lochia noted. Mother and NBF resting [id number]-andd in bed comfortably. - General Info Date of Service: 06/27/19 Admission Dx/Problem (Free Text): Patient Status Order with Admit Dx/Problem 06/27/19 13:06 Patient Status [ADT] Routine 06/27/19 13:39 Patient Status [ADT] Routine Admission Diagnosis/Problem Admission Diagnosis/Problem Planned 06/27/19 14:07 Brittany is a 34 yo at 36.6 weeks gestation (GWENDOLYN 07/19/2019) that presents to L &D today from office for C/O strong, painful contractions every 4-5 min. SVE in office /-, mid-position. Amnisure positive today. O pos, RI, GBS neg ( 05/30/2019). Pertient history includes: Obesity (BMI 32.9), Hx of PTL this , would to right breast/chest wall drained 1 week ago. Functional Status: Reports: Pain Controlled - Review of Systems General: Reports: No Symptoms HEENT: Reports: No Symptoms Pulmonary: Reports: No Symptoms Cardiovascular: Reports: No Symptoms Gastrointestinal: Reports: No Symptoms Genitourinary: Reports: No Symptoms Musculoskeletal: Reports: No Symptoms Skin: Reports: No Symptoms Neurological: Reports: No Symptoms Psychiatric: Reports: No Symptoms - Patient Data Weight - Most Recent: 210 lb I&O - Last 24 Hours: Intake & Output 06/27/19 06/27/19 06/27/19 06:59 14:59 22:59 Intake Total 1999 Balance 1999 Lab Results Last 24 Hours: Laboratory Results - last 24 hr 06/27/19 06/27/19 Range/Units 14:15 14:15 WBC 11.56 H (4.0-11.0) K/uL RBC 4.52 (4.30-5.90) M/uL Hgb 12.9 (12.0-16.0) g/dL Hct 39.4 (36.0-46.0) % MCV 87.2 (80.0-98.0) fL MCH 28.5 (27.0-32.0) pg MCHC 32.7 (31.0-37.0) g/dL RDW Std Deviation 43.2 (28.0-62.0) fl RDW Coeff of Cecilia 14 (11.0-15.0) % Plt Count 164 (150-400) K/uL MPV 12.80 H (7.40-12.00) fL Nucleated RBC % 0.0 /100WBC Nucleated RBCs # 0 K/uL Blood Type O POSITIVE Antibody Screen NEGATIVE Med Orders - Current: Current Medications Butorphanol Tartrate (Stadol) 1 mg IVPUSH Q1H PRN PRN Reason: Pain Carboprost Tromethamine (Hemabate Ds) 250 mcg IM ASDIRECTED PRN PRN Reason: Post Hemorrhage Tranexamic Acid 1,000 mg/ (Sodium Chloride) 110 mls @ 660 mls/hr IV ONETIME PRN PRN Reason: Bleeding Lactated Ringer's (Ringers, Lactated) 1,000 mls @ 150 mls/hr IV ASDIRECTED BRADLY Last Infusion: 06/27/19 16:10 Dose: 150 mls/hr Oxytocin/Sodium Chloride (Oxytocin 30 Unit/500 Ml-Ns) 30 unit in 500 mls @ 500 mls/hr IV TITRATE BRADLY Oxytocin/Sodium Chloride (Oxytocin 30 Unit/500 Ml-Ns) 30 unit in 500 mls @ 2 mls/hr IV TITRATE BRADLY; Protocol Last Admin: 06/27/19 19:44 Dose: 2 munits/min, 2 mls/hr Lidocaine HCl (Xylocaine 1%) 50 ml INJECT ONETIME PRN PRN Reason: Laceration repair Methylergonovine Maleate (Methergine) 0.2 mg IM ASDIRECTED PRN PRN Reason: Post Hemorrhage Misoprostol (Cytotec) 200 mcg PO ONETIME PRN PRN Reason: Post Hemorrhage Nalbuphine HCl (Nubain) 10 mg IVPUSH Q1H PRN PRN Reason: Pain (severe 7-10) Sodium Chloride (Saline Flush) 10 ml FLUSH ASDIRECTED PRN PRN Reason: Keep Vein Open Sodium Chloride (Saline Flush) 2.5 ml FLUSH ASDIRECTED PRN PRN Reason: Keep Vein Open Sodium Chloride (Normal Saline) 10 ml IV ASDIRECTED PRN PRN Reason: IV Use Sterile Water (Sterile Water For Irrigation) 1,000 ml IRR ASDIRECTED PRN PRN Reason: delivery Terbutaline Sulfate (Brethine) 0.25 mg SUBCUT ASDIRECTED PRN PRN Reason: Tacysystole Discontinued Medications Fentanyl (Sublimaze) Confirm Administered Dose 100 mcg .ROUTE .STK-MED ONE Stop: 06/27/19 14:56 Lidocaine HCl (Xylocaine-Mpf 1%) Confirm Administered Dose 2 mls @ as directed .ROUTE .STK-MED ONE Stop: 06/27/19 14:17 Ropivacaine (Naropin 0.2%) Confirm Administered Dose 100 mls @ as directed .ROUTE .STK-MED ONE Stop: 06/27/19 14:56 Ropivacaine (Naropin 0.2%) Confirm Administered Dose 20 ml .ROUTE .STK-MED ONE Stop: 06/27/19 14:56 - Exam General: Alert, Oriented, Cooperative, No Acute Distress HEENT: Pupils Equal, Mucous Membr. Moist/[place] Neck: Supple Lungs: Clear to Auscultation, Normal Respiratory Effort Cardiovascular: Regular Rate, Regular Rhythm GI/Abdominal Exam: Normal Bowel Sounds, Soft, Non-Tender, No Organomegaly, No Distention, Other (Uterus firm @U. Rectum intact, multiple sangeeta-anal condyloma noted.) (Female) Exam: Normal External Exam, Vaginal Bleeding (Scant rubra lochia) Back Exam: Normal Inspection, Full Range of Motion Extremities: Normal Inspection, Normal Range of Motion, Non-Tender, No Pedal Edema, Normal Capillary Refill Skin: Warm, Dry, Intact Wound/Incisions: Healing Well Neurological: No New Focal Deficit Psy/Mental Status: Alert, Normal Affect, Normal Mood - Problem List & Annotations (1) (normal spontaneous vaginal delivery) SNOMED Code(s): 50201342, 771373400 Code(s): O80 - ENCOUNTER FOR FULL-TERM UNCOMPLICATED DELIVERY Status: Acute Priority: High Current Visit: Yes (2) delivery SNOMED Code(s): 548899717, 692539653 Code(s): O60.10X0 - LABOR W DELIVERY, UNSP TRIMESTER, UNSP Status: Acute Priority: High Current Visit: Yes - Problem List Review Problem List Initiated/Reviewed/Updated: Yes - My Orders Last 24 Hours: My Active Orders 06/27/19 13:06 Patient Status [ADT] Routine Non Stress Test [RC] PER UNIT ROUTINE Up ad Mayela [RC] ASDIRECTED Vaginal Exam [RC] Click to Edit Vital Signs [RC] PER UNIT ROUTINE Resuscitation Status Routine 06/27/19 13:39 Patient Status [ADT] Routine Heart Tones [RC] CONTINUOUS Non Stress Test [RC] PER UNIT ROUTINE May Shower [RC] ASDIRECTED Notify Provider [RC] PRN Vaginal Exam [RC] PRN Vital Signs [RC] PER UNIT ROUTINE Butorphanol [Stadol] 1 mg IVPUSH Q1H PRN Carboprost Tromethamine [Hemabate DS] 250 mcg IM ASDIRECTED PRN Lidocaine 1% [Xylocaine 1%] 50 ml INJECT ONETIME PRN Methylergonovine [Methergine] 0.2 mg IM ASDIRECTED PRN Nalbuphine [Nubain] 10 mg IVPUSH Q1H PRN Sodium Chloride 0.9% [Normal Saline] 10 ml IV ASDIRECTED PRN Sodium Chloride 0.9% [Saline Flush] 10 ml FLUSH ASDIRECTED PRN Sodium Chloride 0.9% [Saline Flush] 2.5 ml FLUSH ASDIRECTED PRN Tranexamic Acid [Cyklokapron] 1,000 mg Sodium Chloride 0.9% [Normal Saline] 100 ml IV ONETIME Water For Irrigation,Sterile [Sterile Water for Irrigation] 1,000 ml IRR ASDIRECTED PRN miSOPROStoL [Cytotec] 200 mcg PO ONETIME PRN Scalp Electrode [WOMSER] Per Unit Routine Peripheral IV Insertion Adult [OM.PC] Routine 06/27/19 13:45 Lactated Ringers [Ringers, Lactated] 1,000 ml IV ASDIRECTED Oxytocin/0.9 % Sodium Chloride [Oxytocin 30 Unit/500 ML-NS] 30 unit in 500 ml IV TITRATE 06/27/19 14:15 RPR (SYPHILIS SERO) W/ RFLX [REF] Routine - Plan Plan:: Continue with normal POC S/P uncomplicated . See new orders.
[2019-06-27] MEDS ORDERED: Famotidine 20 MG Tab PO PRN (21:52)
[2019-06-27] MEDS ORDERED: Aluminum Hydroxide/Magnesium Hydroxide/Simethicone Susp 30 ML Cup PO PRN (21:52)
[2019-06-27] MEDS ORDERED: oxyCODONE 5 MG Tab PO PRN (21:52)
[2019-06-27] MEDS ORDERED: Benzocaine/Menthol 20%-0.5% Spray 78 GM Cannister TOP PRN (21:52)
[2019-06-27] MEDS ORDERED: Docusate Sodium 100 MG Cap PO PRN (21:52)
[2019-06-27] MEDS ORDERED: Bisacodyl 10 MG Supp RECTAL PRN (21:52)
[2019-06-27] MEDS ORDERED: Acetaminophen 500 MG Tab PO PRN (21:52)
[2019-06-27] MEDS ORDERED: Lanolin 100% Cream 7 GM Tube TOP PRN (21:52)
[2019-06-27] MEDS ORDERED: Witch Hazel Medicated Pads 40/Jar TOP PRN (21:52)
[2019-06-27] MEDS ORDERED: Oxytocin/0.9 % Sodium Chloride 30 UNIT/500 ML BAG ONE (21:59)
[2019-06-27] MEDS: Ibuprofen 800 MG Tab PO PRN (23:33)
[2019-06-28] MEDS ORDERED: Oxytocin/Lactated Ringers 30 UNIT/500 ML BAG IV SCH (02:00)
[2019-06-28] MEDS ORDERED: Calcium Carbonate 500 MG Tab.Chew PO PRN (02:08)
[2019-06-28] MEDS: Acetaminophen 500 MG Tab PO PRN ×2 (04:45→19:15)
--- NOTE | 2019-06-28 06:57 | PCM.PNPP ---
- General Info Date of Service: 06/28/19 Admission Dx/Problem (Free Text): Patient Status Order with Admit Dx/Problem 06/27/19 13:06 Patient Status [ADT] Routine 06/27/19 13:39 Patient Status [ADT] Routine Admission Diagnosis/Problem Admission Diagnosis/Problem Planned 06/27/19 14:07 Brittany is a 34 yo PPD1 S/P uncomplicated to [facility] at 36.6 weeks gestation. O pos, RI, GBS neg. Pertient history includes: Obesity (BMI 32.9), Hx of PTL this , would to right breast/chest wall drained 1 week ago , healing well. Functional Status: Reports: Pain Controlled - Review of Systems General: Reports: No Symptoms HEENT: Reports: No Symptoms Pulmonary: Reports: No Symptoms Cardiovascular: Reports: No Symptoms Gastrointestinal: Reports: No Symptoms Genitourinary: Reports: No Symptoms, Other (Moderate rubra lochia with few, small clots) Musculoskeletal: Reports: No Symptoms Skin: Reports: No Symptoms Neurological: Reports: No Symptoms Psychiatric: Reports: No Symptoms - General Info Date of Service: 06/28/19 - Patient Data Vital Signs - Most Recent: Last Vital Signs Temp 97.4 F 06/28/19 04:35 Pulse 73 06/28/19 04:35 Resp 16 06/28/19 04:35 BP 103/63 06/28/19 04:35 Pulse Ox 95 06/28/19 04:35 Weight - Most Recent: 210 lb I&O - Last 24 Hours: Intake & Output 06/27/19 06/27/19 06/28/19 14:59 22:59 06:59 Intake Total 1999 Balance 1999 Lab Results - Last 24 Hours: Laboratory Results - last 24 hr 06/27/19 06/27/19 Range/Units 14:15 14:15 WBC 11.56 H (4.0-11.0) K/uL RBC 4.52 (4.30-5.90) M/uL Hgb 12.9 (12.0-16.0) g/dL Hct 39.4 (36.0-46.0) % MCV 87.2 (80.0-98.0) fL MCH 28.5 (27.0-32.0) pg MCHC 32.7 (31.0-37.0) g/dL RDW Std Deviation 43.2 (28.0-62.0) fl RDW Coeff of Cecilia 14 (11.0-15.0) % Plt Count 164 (150-400) K/uL MPV 12.80 H (7.40-12.00) fL Nucleated RBC % 0.0 /100WBC Nucleated RBCs # 0 K/uL Blood Type O POSITIVE Antibody Screen NEGATIVE Med Orders - Current: Current Medications Acetaminophen (Tylenol Extra Strength) 500 mg PO Q4H PRN PRN Reason: Pain Acetaminophen (Tylenol Extra Strength) 1,000 mg PO Q4H PRN PRN Reason: Pain Last Admin: 06/28/19 04:45 Dose: 1,000 mg Al Hydroxide/Mg Hydroxide (Mag-Al Plus) 30 ml PO Q8H PRN PRN Reason: Heartburn Benzocaine/Menthol (Dermoplast Pain Relief 20%-0.5% [place]) 78 gm TOP ASDIRECTED PRN PRN Reason: Perineal Comfort Measure Last Admin: 06/27/19 23:31 Dose: 1 applic Bisacodyl (Dulcolax) 10 mg RECTAL ONETIME PRN PRN Reason: Constipation Docusate Sodium (Colace) 100 mg PO BID PRN PRN Reason: Constipation Last Admin: 06/27/19 23:35 Dose: 100 mg Emollient Ointment (Lansinoh Hpa) 0 gm TOP ASDIRECTED PRN PRN Reason: Sore Nipples Last Admin: 06/27/19 23:31 Dose: 1 applic Famotidine (Pepcid) 20 mg PO BID PRN PRN Reason: Heartburn Ibuprofen (Motrin) 400 mg PO Q4H PRN PRN Reason: Pain Ibuprofen (Motrin) 800 mg PO Q6H PRN PRN Reason: Pain Last Admin: 06/27/19 23:33 Dose: 800 mg Oxycodone HCl (Oxycodone) 5 mg PO Q2H PRN PRN Reason: Pain Sodium Chloride (Saline Flush) 10 ml FLUSH ASDIRECTED PRN PRN Reason: Keep Vein Open Sodium Chloride (Saline Flush) 2.5 ml FLUSH ASDIRECTED PRN PRN Reason: Keep Vein Open Witch Mary (Tucks) 1 pad TOP ASDIRECTED PRN PRN Reason: comfort care Last Admin: 06/27/19 23:32 Dose: 1 applicful Discontinued Medications Butorphanol Tartrate (Stadol) 1 mg IVPUSH Q1H PRN PRN Reason: Pain Carboprost Tromethamine (Hemabate Ds) 250 mcg IM ASDIRECTED PRN PRN Reason: Post Hemorrhage Fentanyl (Sublimaze) Confirm Administered Dose 100 mcg .ROUTE .STK-MED ONE Stop: 06/27/19 14:56 Tranexamic Acid 1,000 mg/ (Sodium Chloride) 110 mls @ 660 mls/hr IV ONETIME PRN PRN Reason: Bleeding Lactated Ringer's (Ringers, Lactated) 1,000 mls @ 150 mls/hr IV ASDIRECTED BRADLY Last Infusion: 06/27/19 16:10 Dose: 150 mls/hr Oxytocin/Sodium Chloride (Oxytocin 30 Unit/500 Ml-Ns) 30 unit in 500 mls @ 500 mls/hr IV TITRATE BRADLY Lidocaine HCl (Xylocaine-Mpf 1%) Confirm Administered Dose 2 mls @ as directed .ROUTE .VBI Vaccines-MED ONE Stop: 06/27/19 14:17 Ropivacaine (Naropin 0.2%) Confirm Administered Dose 100 mls @ as directed .ROUTE .[place]-MED ONE Stop: 06/27/19 14:56 Oxytocin/Sodium Chloride (Oxytocin 30 Unit/500 Ml-Ns) 30 unit in 500 mls @ 2 mls/hr IV TITRATE BRADLY; Protocol Last Admin: 06/27/19 19:44 Dose: 2 munits/min, 2 mls/hr Oxytocin/Sodium Chloride (Oxytocin 30 Unit/500 Ml-Ns) Confirm Administered Dose 30 unit in 500 mls @ as directed .ROUTE .[place]-MED ONE Stop: 06/27/19 22:00 Lidocaine HCl (Xylocaine 1%) 50 ml INJECT ONETIME PRN PRN Reason: Laceration repair Methylergonovine Maleate (Methergine) 0.2 mg IM ASDIRECTED PRN PRN Reason: Post Hemorrhage Misoprostol (Cytotec) 200 mcg PO ONETIME PRN PRN Reason: Post Hemorrhage Nalbuphine HCl (Nubain) 10 mg IVPUSH Q1H PRN PRN Reason: Pain (severe 7-10) Ropivacaine (Naropin 0.2%) Confirm Administered Dose 20 ml .ROUTE .STVBI Vaccines-MED ONE Stop: 06/27/19 14:56 Sodium Chloride (Saline Flush) 10 ml FLUSH ASDIRECTED PRN PRN Reason: Keep Vein Open Sodium Chloride (Saline Flush) 2.5 ml FLUSH ASDIRECTED PRN PRN Reason: Keep Vein Open Sodium Chloride (Normal Saline) 10 ml IV ASDIRECTED PRN PRN Reason: IV Use Sterile Water (Sterile Water For Irrigation) 1,000 ml IRR ASDIRECTED PRN PRN Reason: delivery Terbutaline Sulfate (Brethine) 0.25 mg SUBCUT ASDIRECTED PRN PRN Reason: Tacysystole - Infant Interaction Disposition, : to Nursery Infant Feeding: Attempted ; Nursed Fair/Poor, Bottle Fed Infant, Encouraged to Breastfeed Support Person: - Recovery Exam Fundal Tone: Firm Fundal Level: 1 Fingerbreadths Below Umbilicus Fundal Placement: Midline Lochia Amount: Moderate Lochia Color: Rubra/Red Perineum Description: Edematous Episiotomy/Laceration: Approximated Bladder Status: Voiding - Exam General: Alert, Oriented HEENT: Pupils Equal, Mucous Membr. Moist/[place] Neck: Supple Lungs: Clear to Auscultation, Normal Respiratory Effort Cardiovascular: Regular Rate, Regular Rhythm GI/Abdominal Exam: Normal Bowel Sounds, Soft, Non-Tender, No Organomegaly, No Distention, Other Extremities: Normal Inspection, Normal Range of Motion, Non-Tender, No Pedal Edema, Normal Capillary Refill Skin: Warm, Dry, Intact Wound/Incisions: Other (Approximated) Neurological: Normal Speech, Normal Tone, Reflexes Equal Bilateral Psy/Mental Status: Alert, Normal Affect, Normal Mood - Problem List & Annotations (1) (normal spontaneous vaginal delivery) SNOMED Code(s): 52298192, 728645317 Code(s): O80 - ENCOUNTER FOR FULL-TERM UNCOMPLICATED DELIVERY Status: Acute Priority: High Current Visit: Yes (2) delivery SNOMED Code(s): 282616388, 197585105 Code(s): O60.10X0 - LABOR W DELIVERY, UNSP TRIMESTER, UNSP Status: Acute Priority: High Current Visit: Yes - Problem List Review Problem List Initiated/Reviewed/Updated: Yes - My Orders Last 24 Hours: My Active Orders 06/27/19 13:06 Non Stress Test [RC] PER UNIT ROUTINE Up ad Mayela [RC] ASDIRECTED Vaginal Exam [RC] Click to Edit Vital Signs [RC] PER UNIT ROUTINE 06/27/19 13:39 Heart Tones [RC] CONTINUOUS Non Stress Test [RC] PER UNIT ROUTINE May Shower [RC] ASDIRECTED Notify Provider [RC] PRN Vaginal Exam [RC] PRN Vital Signs [RC] PER UNIT ROUTINE 06/27/19 14:15 RPR (SYPHILIS SERO) W/ RFLX [REF] Routine 06/27/19 21:52 Patient Status [ADT] Routine May Shower [RC] ASDIRECTED Up ad Mayela [RC] ASDIRECTED Vital Signs [RC] PER UNIT ROUTINE Acetaminophen [Tylenol Extra Strength] 1,000 mg PO Q4H PRN Acetaminophen [Tylenol Extra Strength] 500 mg PO Q4H PRN Alum Hydrox/Mag Hydrox/Simeth [Mag-Al Plus] 30 ml PO Q8H PRN Benzocaine/Menthol [Dermoplast Pain Relief 20%-0.5% [place]] 78 gm TOP ASDIRECTED PRN Docusate Sodium [Colace] 100 mg PO BID PRN Famotidine [Pepcid] 20 mg PO BID PRN Ibuprofen [Motrin] 400 mg PO Q4H PRN Ibuprofen [Motrin] 800 mg PO Q6H PRN Lanolin [Lansinoh HPA] See Dose Instructions TOP ASDIRECTED PRN Sodium Chloride 0.9% [Saline Flush] 10 ml FLUSH ASDIRECTED PRN Sodium Chloride 0.9% [Saline Flush] 2.5 ml FLUSH ASDIRECTED PRN bisacodyL [Dulcolax] 10 mg RECTAL ONETIME PRN oxyCODONE 5 mg PO Q2H PRN witch Mary [Tucks] 1 pad TOP ASDIRECTED PRN Assess Lochia [WOMSER] Per Unit Routine Assess Uterine Involution [WOMSER] Per Unit Routine Peripheral IV Discontinue [OM.PC] Routine Saline Lock Insert [OM.PC] Urgent Resuscitation Status Routine 06/27/19 21:53 Ice Therapy [OM.PC] Per Unit Routine Perineal Care [OM.PC] Per Unit Routine Sitz Bath [OM.PC] Per Unit Routine 06/27/19 21:54 Cooling Warming Measures [RC] ASDIRECTED 06/27/19 Breakfast Regular Diet [DIET] - Plan Plan:: PPD1. Continue with normal POC S/P uncomplicated . Continue to encourage . Plan to D/C home in am.
--- NOTE | 2019-06-28 07:28 | PCM48HPAN ---
Post Anesthesia Note - EVALUATION WITHIN 48HRS OF ANESTHETIC Vital Signs in Normal Range: Yes Patient Participated in Evaluation: Yes Respiratory Function Stable: Yes Airway Patent: Yes Cardiovascular Function Stable: Yes Hydration Status Stable: Yes Pain Control Satisfactory: Yes Nausea and Vomiting Control Satisfactory: Yes Mental Status Recovered: Yes Vital Signs: Last Vital Signs Temp 36.3 C 06/28/19 04:35 Pulse 73 06/28/19 04:35 Resp 16 06/28/19 04:35 BP 103/63 06/28/19 04:35 Pulse Ox 95 06/28/19 04:35 - COMMENTS/OBSERVATIONS Free Text/Narrative:: Did well. No problems post.
[2019-06-28] MEDS: Ibuprofen 400 MG Tab PO PRN ×2 (08:09→16:24)
[2019-06-28 19:21] VITALS: BP 110/78; PULSE 74
--- NOTE | 2019-06-28 20:02 | PCM.DCSUM1 ---
Discharge Summary - Hospital Course Diagnosis: Stroke: No - Discharge Data Discharge Date: 06/28/19 Discharge Disposition: Home, Self-Care 01 Condition: Good - Referral to Home Health Primary Care Physician: Faustino Simpson MD - Patient Instructions Diet: Usual Diet as Tolerated Activity: As Tolerated - Discharge Plan Home Medications: Home Meds NIFEdipine [Nifedical XL] 30 mg PO DAILY #30 tab.er 06/01/19 [Rx] Omeprazole 20 mg PO DAILY 06/01/19 [History] Prenat 115/Iron Fum/Folic/Dss [ 19 Tablet] 1 tab PO DAILY 06/01/19 [ History] Pyridoxine HCl (Vitamin B6) [B-6] 1 tab PO DAILY 06/01/19 [History] Calcium Carbonate [Calcium] 1 tab PO DAILY 06/27/19 [History] Folic Acid 1 tab PO DAILY 06/27/19 [History] Referrals: [facility] [Outside] Nkechi Muñiz CNM [Mid-] - 08/15/19 1:00 pm - Discharge Summary/Plan Comment DC Time >30 min.: Yes - General Info Date of Service: 06/28/19 Functional Status: Reports: Pain Controlled - Review of Systems General: Reports: No Symptoms HEENT: Reports: No Symptoms Pulmonary: Reports: No Symptoms Cardiovascular: Reports: No Symptoms Gastrointestinal: Reports: No Symptoms Genitourinary: Reports: No Symptoms Musculoskeletal: Reports: No Symptoms Skin: Reports: No Symptoms Neurological: Reports: No Symptoms Psychiatric: Reports: No Symptoms - Patient Data Vitals - Most Recent: Last Vital Signs Temp 36.4 C 06/28/19 19:20 Pulse 74 06/28/19 19:20 Resp 16 06/28/19 19:20 BP 110/78 06/28/19 19:20 Pulse Ox 99 06/28/19 19:20 Weight - Most Recent: 95.254 kg Med Orders - Current: Current Medications Acetaminophen (Tylenol Extra Strength) 500 mg PO Q4H PRN PRN Reason: Pain Last Admin: 06/28/19 13:31 Dose: 500 mg Acetaminophen (Tylenol Extra Strength) 1,000 mg PO Q4H PRN PRN Reason: Pain Last Admin: 06/28/19 19:15 Dose: 1,000 mg Al Hydroxide/Mg Hydroxide (Mag-Al Plus) 30 ml PO Q8H PRN PRN Reason: Heartburn Benzocaine/Menthol (Dermoplast Pain Relief 20%-0.5% [place]) 78 gm TOP ASDIRECTED PRN PRN Reason: Perineal Comfort Measure Last Admin: 06/27/19 23:31 Dose: 1 applic Bisacodyl (Dulcolax) 10 mg RECTAL ONETIME PRN PRN Reason: Constipation Docusate Sodium (Colace) 100 mg PO BID PRN PRN Reason: Constipation Last Admin: 06/27/19 23:35 Dose: 100 mg Emollient Ointment (Lansinoh Hpa) 0 gm TOP ASDIRECTED PRN PRN Reason: Sore Nipples Last Admin: 06/27/19 23:31 Dose: 1 applic Famotidine (Pepcid) 20 mg PO BID PRN PRN Reason: Heartburn Ibuprofen (Motrin) 400 mg PO Q4H PRN PRN Reason: Pain Last Admin: 06/28/19 16:24 Dose: 400 mg Ibuprofen (Motrin) 800 mg PO Q6H PRN PRN Reason: Pain Last Admin: 06/27/19 23:33 Dose: 800 mg Oxycodone HCl (Oxycodone) 5 mg PO Q2H PRN PRN Reason: Pain Sodium Chloride (Saline Flush) 10 ml FLUSH ASDIRECTED PRN PRN Reason: Keep Vein Open Sodium Chloride (Saline Flush) 2.5 ml FLUSH ASDIRECTED PRN PRN Reason: Keep Vein Open Witch Mary (Tucks) 1 pad TOP ASDIRECTED PRN PRN Reason: comfort care Last Admin: 06/27/19 23:32 Dose: 1 applicful Discontinued Medications Butorphanol Tartrate (Stadol) 1 mg IVPUSH Q1H PRN PRN Reason: Pain Carboprost Tromethamine (Hemabate Ds) 250 mcg IM ASDIRECTED PRN PRN Reason: Post Hemorrhage Fentanyl (Sublimaze) Confirm Administered Dose 100 mcg .ROUTE .[facility] ONE Stop: 06/27/19 14:56 Tranexamic Acid 1,000 mg/ (Sodium Chloride) 110 mls @ 660 mls/hr IV ONETIME PRN PRN Reason: Bleeding Lactated Ringer's (Ringers, Lactated) 1,000 mls @ 150 mls/hr IV ASDIRECTED BRADLY Last Infusion: 06/27/19 16:10 Dose: 150 mls/hr Oxytocin/Sodium Chloride (Oxytocin 30 Unit/500 Ml-Ns) 30 unit in 500 mls @ 500 mls/hr IV TITRATE BRADLY Lidocaine HCl (Xylocaine-Mpf 1%) Confirm Administered Dose 2 mls @ as directed .ROUTE .[facility] ONE Stop: 06/27/19 14:17 Ropivacaine (Naropin 0.2%) Confirm Administered Dose 100 mls @ as directed .ROUTE .[facility] ONE Stop: 06/27/19 14:56 Oxytocin/Sodium Chloride (Oxytocin 30 Unit/500 Ml-Ns) 30 unit in 500 mls @ 2 mls/hr IV TITRATE BRADLY; Protocol Last Admin: 06/27/19 19:44 Dose: 2 munits/min, 2 mls/hr Oxytocin/Sodium Chloride (Oxytocin 30 Unit/500 Ml-Ns) Confirm Administered Dose 30 unit in 500 mls @ as directed .ROUTE .[facility] ONE Stop: 06/27/19 22:00 Lidocaine HCl (Xylocaine 1%) 50 ml INJECT ONETIME PRN PRN Reason: Laceration repair Methylergonovine Maleate (Methergine) 0.2 mg IM ASDIRECTED PRN PRN Reason: Post Hemorrhage Misoprostol (Cytotec) 200 mcg PO ONETIME PRN PRN Reason: Post Hemorrhage Nalbuphine HCl (Nubain) 10 mg IVPUSH Q1H PRN PRN Reason: Pain (severe 7-10) Ropivacaine (Naropin 0.2%) Confirm Administered Dose 20 ml .ROUTE .[facility] ONE Stop: 06/27/19 14:56 Sodium Chloride (Saline Flush) 10 ml FLUSH ASDIRECTED PRN PRN Reason: Keep Vein Open Sodium Chloride (Saline Flush) 2.5 ml FLUSH ASDIRECTED PRN PRN Reason: Keep Vein Open Sodium Chloride (Normal Saline) 10 ml IV ASDIRECTED PRN PRN Reason: IV Use Sterile Water (Sterile Water For Irrigation) 1,000 ml IRR ASDIRECTED PRN PRN Reason: delivery Terbutaline Sulfate (Brethine) 0.25 mg SUBCUT ASDIRECTED PRN PRN Reason: Tacysystole - Exam General: Reports: Alert, Oriented HEENT: Reports: Pupils Equal, Pupils Reactive, EOMI, Mucous Membr. Moist/[place] Neck: Reports: Supple Lungs: Reports: Clear to Auscultation, Normal Respiratory Effort Cardiovascular: Reports: Regular Rate, Regular Rhythm GI/Abdominal Exam: Normal Bowel Sounds, Soft, Non-Tender, No Organomegaly, No Distention, No Abnormal Bruit, No Mass, Pelvis Stable (Female) Exam: Normal External Exam, Normal Speculum Exam, Normal Bimanual Exam Rectal (Female) Exam: Normal Exam, Normal Rectal Tone Back Exam: Reports: Normal Inspection, Full Range of Motion Extremities: Normal Inspection, Normal Range of Motion, Non-Tender, No Pedal Edema, Normal Capillary Refill Skin: Reports: Warm, Dry, Intact Wound/Incisions: Reports: Healing Well Neurological: Reports: No New Focal Deficit Psy/Mental Status: Reports: Alert, Normal Affect, Normal Mood
[2019-06-28] MEDS: Ibuprofen 800 MG Tab PO PRN (23:17)
== END 2019-06-28 23:30 | disposition home or self-care (01) | DRG 807 ==
LOC: MW.OBCHECK 12:27 → MW.OB 12:30 → MW.OBCHECK 21:17 → MW.OB 21:17 → OBSVTOIN 21:17 → MW.OB 06-28
PROVIDERS: ADMIT Obstetrics & Gynecology; ATTEND Obstetrics & Gynecology
PROC: 10E0XZZ Delivery of Products of Conception, External Approach (ICD-10-PCS; principal; 2019-06-27)
PROC: 0KQM0ZZ Repair Perineum Muscle, Open Approach (ICD-10-PCS; 2019-06-27)
PROC: 3E0R3BZ Introduction of Anesthetic Agent into Spinal Canal, Percutaneous Approach (ICD-10-PCS; 2019-06-27)
PROC: 00HU33Z Insertion of Infusion Device into Spinal Canal, Percutaneous Approach (ICD-10-PCS; 2019-06-27)
DX: O99.62 Diseases of the digestive system complicating childbirth (principal); Z37.0 Single live birth; O99.214 Obesity complicating childbirth; E66.9 Obesity, unspecified; Z3A.36 36 weeks gestation of pregnancy; Z88.6 Allergy status to analgesic agent; Z91.040 Latex allergy status; O70.1 Second degree perineal laceration during delivery
CPT/HCPCS: 01967; 36410; 51702; 59025; 59409; 85027; 86592; 86850; 86900; 86901; A9270-GY; J2590; J7120

== ENCOUNTER 2020-02-22 20:25 | Emergency (ER) | payer OTHER, BC ==
[2020-02-22] MEDS ORDERED: Ondansetron 4 MG/2 ML SDV IVPUSH ONE (20:43)
[2020-02-22] MEDS ORDERED: Morphine 2 MG/ML SYRINGE IVPUSH ONE (20:43)
--- NOTE | 2020-02-22 20:49 | EDM.PDOC ---
ED HPI GENERAL MEDICAL PROBLEM - General Chief Complaint: Lower Extremity Injury/Pain Stated Complaint: EMS Time Seen by Provider: 02/22/20 20:26 Source of Information: Reports: Patient History Limitations: Reports: No Limitations - History of Present Illness INITIAL COMMENTS - FREE TEXT/NARRATIVE: HISTORY AND PHYSICAL: History of present illness: Patient is a 34-year-old female who presents to the emergency room with complaints of left lower extremity pain and injury. She states she was changing an CO2 tank for a soda machine when it "exploded" and hit her left lower extr emity. Denies any numbness, tingling, saddle paraesthesia. She denies any other bodily injury/trauma. Patient denies any fever, chills, headache, change in vision, syncope or near syncope. Denies any chest pain, back pain, shortness of breath or cough. Denies any GI or symptoms. Review of systems: As per history of present illness and below otherwise all systems reviewed and negative. Past medical history: As per history of present illness and as reviewed below otherwise noncontributory. Surgical history: As per history of present illness and as reviewed below otherwise noncontribut ory. Social history: See social history for further information Family history: As per history of present illness and as reviewed below otherwise noncontributory. Physical exam: General: Well developed and well nourished 34 year old female. Alert and orientated x 3. Nontoxic in appearance and in no acute distress. Vital signs are stable and have been reviewed by me. Nursing notes were reviewed. HEENT: Atraumatic, normocephalic, pupils equal and reactive bilaterally, negative for conjunctival pallor or scleral icterus, mucous membranes moist, TMs normal bilaterally, throat clear, neck supple, nontender, trachea midline. No drooling or trismus noted. No meningeal signs. No hot potato voice noted. Lungs: Clear to auscultation, breath sounds equal bilaterally, chest nontender. Normal work of breathing, no accessory muscles used. Heart: S1S2, regular rate and rhythm without overt murmur Abdomen: Soft, nondistended, nontender. Negative for masses or hepatosplenomegaly. Negative for costovertebral tenderness. Pelvis: Stable nontender. C-spine/Back: No pinpoint vertebral tenderness upon palpation. No crepitus, step-offs or obvious deformities. Denies any urinary or fecal incontinence. Denies any numbness, tingling or saddle paresthesia. Deep tendon reflexes brisk bilaterally. Skin: Intact, warm, dry. No No lesions or rashes noted. Hematologic: No petechiae or purpra. Mucosa appropriate color and normal nail bed color and refill. Extremities: Tenderness with palpation of the mid left garcia that extends down into the left medial malleolus. She moves all extremities per self without difficulty or deficits, negative for cords or calf pain. Neurovascular unremarkable. Neuro: Awake, alert, oriented. Cranial nerves II through XII unremarkable. Cerebellum unremarkable. Motor and sensory unremarkable throughout. Exam nonfocal. Psychiatric: Mood and affect are appropriate. Normal thought process. Answering questions appropriately. Notes: CAM walker boot and crutches for contusion/crush injury for left tib/fib and ankle injury. To wear for the next 3 days or until follow- up with orthopedics. I have talked with the patient about today's findings, in addition to providing specific details for plan of care. Reassessment at the time of disposition demonstrates that the patient is in no acute distress. The patient is stable for discharge, counseling was provided and we discussed in great detail signs and symptoms that would prompt them to return to the Emergency Department. Medication, follow up and supportive care measures were reviewed and discussed. Voices understanding and is agreeable to plan of care. Denies any further questions or concerns at this time. Diagnostics: X-ray ankle/tib-fib Therapeutics: CAM walker boot/Crutches Prescription: Tramadol (#15) Impression: Left lower extremity crush injury Plan: 1. Rest, ice, elevate the extremity as able. Use the cam walker boot and crutches over the next 2 to 3 days for comfort. 2. Tylenol and/or ibuprofen as needed for pain. Tramadol for moderate to severe pain. This medication may cause drowsiness so do not take it while driving or needing to be functioning outside of the house. 3. We encourage you to follow up with your primary care provider and/or for re- evaluation and further care/management. If your symptoms should worsen, new symptoms develop or any of the signs and symptoms we discussed should arise please return to the emergency room or call 911 (if needed). Definitive disposition and diagnosis as appropriate pending reevaluation and review of above. - Related Data Allergies Allergy/AdvReac Type Severity Reaction Status Date / Time aspirin Allergy Tachycardia Verified 02/22/20 20:55 latex Allergy Rash Verified 02/22/20 20:55 Home Meds: Home Meds NIFEdipine [Nifedical XL] 30 mg PO DAILY #30 tab.er 06/01/19 [Rx] Omeprazole 20 mg PO DAILY 06/01/19 [History] Prenat 115/Iron Fum/Folic/Dss [ 19 Tablet] 1 tab PO DAILY 06/01/19 [History] Pyridoxine HCl (Vitamin B6) [B-6] 1 tab PO DAILY 06/01/19 [History] Calcium Carbonate [Calcium] 1 tab PO DAILY 06/27/19 [History] Folic Acid 1 tab PO DAILY 06/27/19 [History] Past Medical History - Past Health History Medical/Surgical History: Denies Medical/Surgical History HEENT History: Reports: None Cardiovascular History: Reports: Other (See Below) Other Cardiovascular History: Hypercholesterolemia Respiratory History: Reports: None Gastrointestinal History: Reports: GERD Genitourinary History: Reports: None [employer] History: Reports: Other [employer] History: ASCUS pap 06/2018, colposcopy 07/2018. Musculoskeletal History: Reports: None Neurological History: Reports: None Psychiatric History: Reports: None Endocrine/Metabolic History: Reports: Obesity/BMI 30+ Hematologic History: Reports: None Immunologic History: Reports: None Oncologic (Cancer) History: Reports: None Dermatologic History: Reports: None - Infectious Disease History Infectious Disease History: Reports: Chicken Pox, Hepatitis A - Past Surgical History GI Surgical History: Reports: Cholecystectomy Social & Family History - Family History Family Medical History: No Pertinent Family History HEENT: Reports: Impaired Vision Cardiac: Reports: High Cholesterol, Hypertension, [place] Respiratory: Reports: Asthma GI: Reports: None : Reports: None OBGYN: Reports: Musculoskeletal: Reports: RA Neurological: Reports: CVA Psychiatric: Reports: None Endocrine/Metabolic: Reports: Hypothyroidism Hematologic: Reports: None Immunologic: Reports: None Dermatologic: Reports: None Oncologic: Reports: Breast - Caffeine Use Caffeine Use: Reports: None Review of Systems - Review of Systems Review Of Systems: Comprehensive ROS is negative, except as noted in HPI. ED EXAM, GENERAL - Physical Exam Exam: See Below (See dictation) Course - Vital Signs Last Recorded V/S: Last Vital Signs Temp 96.9 F 02/22/20 20:48 Pulse 90 02/22/20 20:48 Resp 20 02/22/20 20:48 BP 128/74 02/22/20 20:48 Pulse Ox 99 02/22/20 20:48 - Orders/Labs/Meds Orders: Active Orders 24 hr Category Date Time Status DME for Discharge [COMM] Stat Oth 02/22/20 21:12 Ordered Meds: Medications Discontinued Medications Generic Name Dose Route Start Last Admin Trade Name Marybel PRN Reason Stop Dose Admin Morphine Sulfate 2 mg 02/22/20 20:43 02/22/20 21:08 Morphine IVPUSH 02/22/20 20:44 2 mg ONETIME ONE Administration Ondansetron HCl 4 mg 02/22/20 20:43 02/22/20 21:06 Zofran IVPUSH 02/22/20 20:44 4 mg ONETIME ONE Administration Departure - Departure Time of Disposition: 22:12 Disposition: Home, Self-Care 01 Clinical Impression: Crush injury - Discharge Information Referrals: PCP,None [Primary Care Provider] - Forms: ED Department Discharge Additional Instructions: The following information is given to patients seen in the emergency department who are being discharged to home. This information is to outline your options for follow-up care. We provide all patients seen in our emergency department with a follow-up referral. The need for follow-up, as well as the timing and circumstances, are variable depending upon the specifics of your emergency department visit. If you don't have a primary care physician on staff, we will provide you with a referral. We always advise you to contact your personal physician following an emergency department visit to inform them of the circumstance of the visit and for follow-up with them and/or the need for any referrals to a consulting specialist. The emergency department will also refer you to a specialist when appropriate. This referral assures that you have the opportunity for follow-up care with a specialist. All of these measure are taken in an effort to provide you with optimal care, which includes your follow-up. Under all circumstances we always encourage you to contact your private physician who remains a resource for coordinating your care. When calling for follow-up care, please make the office aware that this follow-up is from your recent emergency room visit. If for any reason you are refused follow-up, please contact the [facility] Emergency Department at and asked to speak to the emergency department charge nurse. [facility] [address] [place] [address] [facility] [address] [place] [address] Thank you for choosing the [facility] emergency department in [place] for your medical needs today. It was a pleasure caring for you. Today you were seen in the emergency department for left leg injury. 1. Rest, ice, elevate the extremity as able. Use the cam walker boot and crutches over the next 2 to 3 days for comfort. 2. Tylenol and/or ibuprofen as needed for pain. Tramadol for moderate to severe pain. This medication may cause drowsiness so do not take it while driving or needing to be functioning outside of the house. 3. We encourage you to follow up with your primary care provider and/or for re- evaluation and further care/management. If your symptoms should worsen, new symptoms develop or any of the signs and symptoms we discussed should arise please return to the emergency room or call 911 (if needed). Sepsis Event Note (ED) - Focused Exam Vital Signs: Vital Signs Temp Pulse Resp BP Pulse Ox 02/22/20 20:48 96.9 F 90 20 128/74 99 - My Orders Last 24 Hours: My Active Orders 02/22/20 21:12 DME for Discharge [COMM] Stat - Assessment/Plan Last 24 Hours: My Active Orders 02/22/20 21:12 DME for Discharge [COMM] Stat
[2020-02-22 20:54] VITALS: BP 128/74; PULSE 90
--- NOTE | 2020-02-22 21:42 | CR ---
HISTORY: Pain. Injury to the left leg. COMPARISON: None. FINDINGS: Three views of the left tibia and fibula. No evidence for acute fracture or dislocation. Soft tissues are within normal. Dictated by Maribel Riddle MD @ Feb 22 2020 9:40PM Signed by Dr. Maribel Riddle @ Feb 22 2020 9:41PM
--- NOTE | 2020-02-22 21:42 | CR ---
HISTORY: Ankle pain. COMPARISON: None. FINDINGS: Three views of the left ankle. The ankle mortise appears intact. No evidence for acute fracture or dislocation. Mild soft tissue swelling about the ankle. Dictated by Maribel Riddle MD @ Feb 22 2020 9:39PM Signed by Dr. Maribel Riddle @ Feb 22 2020 9:40PM
== END 2020-02-22 22:25 | disposition home or self-care (01) ==
LOC: MW.ED 20:25
DX: S87.82XA Crushing injury of left lower leg, initial encounter (principal); K21.9 Gastro-esophageal reflux disease without esophagitis; E66.9 Obesity, unspecified; Z68.35 Body mass index [BMI] 35.0-35.9, adult; Z88.6 Allergy status to analgesic agent; Z91.040 Latex allergy status; Z79.899 Other long term (current) drug therapy; W22.8XXA Striking against or struck by other objects, initial encounter
CPT/HCPCS: 73590; 73610; 96374; 96375; 99284; J2270; J2405

== ENCOUNTER 2022-02-18 08:26 | Day surgery (SDC) | payer OTHER ==
[~2022-02-18 08:26] MED LIST changes: +Sodium Chloride 0.9% 10 ML Syringe FLUSH PRN; +Sodium Chloride 0.9% 2.5 ML Syringe FLUSH PRN; +Sodium Chloride 0.9% 20 ML SDV IV PRN
[2022-02-18] MEDS ORDERED: Propofol 200 MG/20 ML SDV ONE (09:29)
[2022-02-18] MEDS ORDERED: Lidocaine 2% 5 ML SDV ONE (09:29)
[2022-02-18] MEDS ORDERED: fentaNYL 100 MCG/2 ML SDV ONE (09:29)
[2022-02-18 10:21] VITALS: BP 111/60; PULSE 69
== END 2022-02-18 10:45 | disposition home or self-care (01) ==
LOC: MW.SDS 08:26
PROVIDERS: ATTEND Surgery
DX: K22.70 Barrett's esophagus without dysplasia (principal); K21.00 Gastro-esophageal reflux disease with esophagitis, without bleeding; K44.9 Diaphragmatic hernia without obstruction or gangrene; B96.81 Helicobacter pylori [H. pylori] as the cause of diseases classified elsewhere; E66.9 Obesity, unspecified; E55.9 Vitamin D deficiency, unspecified; G43.909 Migraine, unspecified, not intractable, without status migrainosus; Z91.040 Latex allergy status; Z88.6 Allergy status to analgesic agent; Z79.899 Other long term (current) drug therapy; Z98.890 Other specified postprocedural states; Z87.891 Personal history of nicotine dependence; Z68.35 Body mass index [BMI] 35.0-35.9, adult; Z90.49 Acquired absence of other specified parts of digestive tract
CPT/HCPCS: 43239; 81025; J2704; J3010; J7120; 00731

== ENCOUNTER 2023-12-03 10:38 | Emergency (ER) | payer OTHER ==
[2023-12-03] MEDS ORDERED: Sodium Chloride 0.9% 10 ML Syringe FLUSH PRN (10:43)
[2023-12-03] MEDS: Sodium Chloride 0.9% 1,000 ML IV ONE (11:09)
[2023-12-03 11:18] LABS: BASOPHILS ABSOLUTE AUTO 0.01 K/uL (0.00-0.20); BASOPHILS PERCENT AUTO 0.2 % (0.0-1.0); EOSINOPHILS ABSOLUTE AUTO 0.13 K/uL (0.00-0.45); EOSINOPHILS PERCENT AUTO 2.3 % (0.0-6.0); HEMATOCRIT 39.2 % (37.0-47.0); IMMATURE GRAN ABSOLUTE AUTO 0.01 K/uL (0.00-0.05); IMMATURE GRAN PERCENT AUTO 0.2 % (0.0-0.4); LYMPHOCYTES ABSOLUTE AUTO 2.49 K/uL (1.00-4.80); LYMPHOCYTES PERCENT AUTO 44.1 % (24.0-44.0); MEAN CORPUSCULAR HEMOGLOBIN 27.6 pg (28.0-32.0); MEAN CORPUSCULAR HGB CONC 33.2 g/dL (32.0-36.0); MEAN CORPUSCULAR VOLUME 83.2 fL (83.0-99.0); MEAN PLATELET VOLUME 11.9 fL (9.4-12.3); MONOCYTES ABSOLUTE AUTO 0.32 K/uL (0.00-0.80); MONOCYTES PERCENT AUTO 5.7 % (0.0-8.0); NEUTROPHILS ABSOLUTE AUTO 2.69 K/uL (1.80-7.70); NEUTROPHILS PERCENT AUTO 47.5 % (41.0-71.0); PLATELET COUNT,PLT 163 K/uL (150-400); RED BLOOD CELL COUNT 4.71 M/uL (4.10-5.30); WHITE BLOOD CELL COUNT,WBC 5.65 K/uL (3.9-11.3)
[2023-12-03] MEDS: Dexamethasone 4 MG/ML SDV IVPUSH ONE (11:30)
[2023-12-03] MEDS: Meclizine 25 MG Tab PO ONE (11:30)
[2023-12-03] MEDS: Ondansetron 4 MG/2 ML SDV IVPUSH ONE (11:37)
[2023-12-03 12:04] VITALS: BP 133/85; PULSE 76
[2023-12-03 12:16] LABS: ALANINE AMINOTRANSFERASE,ALT 14 IU/L (14-63); ALBUMIN 3.5 g/dL (3.4-5.0); ALKALINE PHOSPHATASE 79 U/L (46-116); ASPARTATE AMNIOTRANSFERASE,AST 11 IU/L (15-37); BILIRUBIN TOTAL 0.3 mg/dL (0.2-1.0); BLOOD UREA NITROGEN,BUN 14 mg/dL (7.0-18.0); CALCIUM 8.7 mg/dL (8.5-10.1); CARBON DIOXIDE,CO2 26.7 mmol/L (21.0-32.0); CHLORIDE,CL 105 mmol/L (98-107); CREATININE 0.8 mg/dL (0.6-1.0); EST CRCL DRUG DOSING (CG) 88.38 mL/min; GLUCOSE RANDOM 88 mg/dL (74-106); MAGNESIUM 2.2 mg/dL (1.8-2.4); PRO B-TYPE NATRIUR PEPT,BNPPRO 15 pg/mL (0-125); SODIUM,NA 141 mmol/L (136-145)
[2023-12-03 12:17] LABS: ESTIMATED GFR 96 mL/min (>60)
[2023-12-03 12:42] LABS: APPEARANCE,URINE CLEAR; BILIRUBIN,URINE NEGATIVE (NEGATIVE); COLOR,URINE YELLOW; GLUCOSE,URINE NEGATIVE (NEGATIVE); KETONES,URINE NEGATIVE (NEGATIVE); LEUKOCYTE ESTERASE,URINE NEGATIVE (NEGATIVE); NITRITE,URINE NEGATIVE (NEGATIVE); OCCULT BLOOD,URINE MODERATE (NEGATIVE); PROTEIN,URINE NEGATIVE (NEGATIVE); UROBILINOGEN,URINE 0.2 EU/dL (<2.0)
[2023-12-03 12:51] LABS: BACTERIA,URINE FEW (NEGATIVE); EPITHELIAL CELLS,URINE OCCASIONAL (NONE-FEW); RBC,URINE 0-2 (0-2/HPF); WBC,URINE 0-3 (0-5/HPF)
[2023-12-03] MEDS ORDERED: diphenhydrAMINE 50 MG/ML SDV IVPUSH ONE (13:14)
[2023-12-03] MEDS: Prochlorperazine 10 MG/2 ML SDV IVPUSH ONE (13:32)
[2023-12-03] MEDS: Acetaminophen 500 MG Tab PO ONE (13:32)
[2023-12-03] MEDS: diphenhydrAMINE 50 MG/ML SDV IVPUSH ONE (13:32)
[2023-12-03] MEDS: Iopamidol 755 MG/ML 500 ML Multipack Bottle IVPUSH STA (13:34)
[2023-12-03] MEDS: Ketorolac 30 MG/ML SDV IVPUSH ONE (13:58)
[2023-12-03] MEDS: Metoclopramide 10 MG/2 ML SDV IVPUSH ONE (15:19)
== END 2023-12-03 15:36 | disposition home or self-care (01) ==
LOC: MW.ED 10:38
DX: R51.9 Headache, unspecified (principal); M54.2 Cervicalgia; R11.0 Nausea; H81.392 Other peripheral vertigo, left ear; K21.9 Gastro-esophageal reflux disease without esophagitis; E66.9 Obesity, unspecified; R20.2 Paresthesia of skin; Z90.49 Acquired absence of other specified parts of digestive tract; Z79.899 Other long term (current) drug therapy; Z91.040 Latex allergy status; Z88.6 Allergy status to analgesic agent; Z86.69 Personal history of other diseases of the nervous system and sense organs; Z68.34 Body mass index [BMI] 34.0-34.9, adult
CPT/HCPCS: 36415; 70450; 70496; 70498; 71045; 80053; 81001; 82947; 83735; 83880; 84484; 84703; 85025; 93005; 96361; 96374; 96375; 99284; A9270; J0780; J1100; J1200; J1885; J2405; J7030; Q9967; 93010

== ENCOUNTER 2024-08-29 10:20 | Emergency (ER) | payer OTHER ==
[2024-08-29 12:01] LABS: BASOPHILS ABSOLUTE AUTO 0.01 K/uL (0.00-0.20); BASOPHILS PERCENT AUTO 0.1 % (0.0-1.0); EOSINOPHILS ABSOLUTE AUTO 0.15 K/uL (0.00-0.45); EOSINOPHILS PERCENT AUTO 2.2 % (0.0-6.0); IMMATURE GRAN ABSOLUTE AUTO 0.00 K/uL (0.00-0.05); IMMATURE GRAN PERCENT AUTO 0.0 % (0.0-0.4); LYMPHOCYTES ABSOLUTE AUTO 2.57 K/uL (1.00-4.80); LYMPHOCYTES PERCENT AUTO 38.0 % (24.0-44.0); MEAN PLATELET VOLUME 10.8 fL (9.4-12.3); MONOCYTES ABSOLUTE AUTO 0.36 K/uL (0.00-0.80); MONOCYTES PERCENT AUTO 5.3 % (0.0-8.0); NEUTROPHILS ABSOLUTE AUTO 3.68 K/uL (1.80-7.70); NEUTROPHILS PERCENT AUTO 54.4 % (41.0-71.0); NRBC ABSOLUTE 0.00 K/uL (0.00-0.02); NRBC PERCENT 0.0 /100WBC (0.0-0.2); PLATELET COUNT,PLT 242 K/uL (150-400); RED BLOOD CELL COUNT 5.02 M/uL (4.10-5.30); WHITE BLOOD CELL COUNT,WBC 6.77 K/uL (3.9-11.3)
[2024-08-29 12:35] LABS: A/G RATIO 1.0 (0.9-1.6); ALANINE AMINOTRANSFERASE,ALT 35 IU/L (14-63); ASPARTATE AMNIOTRANSFERASE,AST 14 IU/L (15-37); BILIRUBIN TOTAL 0.7 mg/dL (0.2-1.0); BLOOD UREA NITROGEN,BUN 12 mg/dL (7.0-18.0); CARBON DIOXIDE,CO2 28.3 mmol/L (21.0-32.0); CHLORIDE,CL 101 mmol/L (98-107); CREATININE 0.9 mg/dL (0.6-1.0); EST CRCL DRUG DOSING (CG) 77.79 mL/min; ESTIMATED GFR 83 mL/min (>60); GLUCOSE RANDOM 84 mg/dL (74-106); POTASSIUM,K 3.9 mmol/L (3.5-5.1); PROTEIN TOTAL,TP 7.7 g/dL (6.4-8.2); SODIUM,NA 138 mmol/L (136-145)
[2024-08-29 13:40] VITALS: BP 110/84; PULSE 87
== END 2024-08-29 13:39 | disposition home or self-care (01) ==
LOC: MW.ED 10:20
DX: R07.89 Other chest pain (principal); K21.9 Gastro-esophageal reflux disease without esophagitis; Z90.49 Acquired absence of other specified parts of digestive tract; Z88.6 Allergy status to analgesic agent; Z91.040 Latex allergy status; Z79.899 Other long term (current) drug therapy; Z75.3 Unavailability and inaccessibility of health-care facilities
CPT/HCPCS: 36415; 71046; 71046-26; 80053; 83690; 84484; 84703; 85025; 93005; 99283; 99285